=== PATIENT | female | born 2000 | race Caucasian/White ===

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

== ENCOUNTER 2021-11-20 19:26 | Emergency (ER) | payer MEDICAID ==
[2021-11-20] MEDS ORDERED: Compazine 10 MG/2 ML IV ONE (19:40)
[2021-11-20] MEDS ORDERED: Hydromorphone 1 mg/ml Injection IV ONE (19:40)
[2021-11-20] MEDS ORDERED: Sodium Chloride 0.9% 1000 ML 1,000 ML IV STA (19:40)
--- NOTE | 2021-11-20 19:40 | ERPHSYRPT ---
- History of Present Illness Time Seen by Provider: 11/20/21 19:35 Source: patient, EMS Exam Limitations: no limitations Physician History: This is a 21-year-old white female who is had no prior abdominal surgeries and presents with right lower quadrant abdominal pain with associated vomiting that began yesterday and worsened today. Patient was already seen at the [facility] emergency department earlier today. Per patient report, the CAT scan was done and there was no evidence of any issues. However, patient's pain worsened and she contacted EMS who transported the patient to our facility. EMS reports that patient was hypotensive and in pain upon their arrival with a systolic blood pressure that was palpable in the 60s. Patient was given intrave nous fluids and upon arrival to our emergency department the patient systolic blood pressures were in the 120s. Patient's heart rate is in the 70s. Patient denies chest pain. She denies shortness of breath. Patient does have a history of hypothyroidism, asthma and pituitary gland issues and is taking hydrocortisone. Patient states she is taking her medication as prescribed. Patient's last menstrual period was 1 week ago. Patient's test, per patient report, was negative this morning at the [facility] emergency department. Timing/Duration: yesterday, worse Severity: moderate Associated Symptoms: nausea, vomiting, abdominal pain (Right lower quadrant), weakness Allergies/Adverse Reactions: ondansetron [From Zofran] Allergy (Verified 12/27/17 18:44) ondansetron HCl [From Zofran] Allergy (Verified 07/12/15 18:46) Home Medications: Hydrocortisone 5 mg PO HS 10/12/13 [History] Levothyroxine Sodium [Synthroid] 75 mcg PO DAILY 10/12/13 [History] Somatropin [Genotropin] 1.8 mg SQ HS 10/12/13 [History] Hydrocortisone 7.5 mg PO DAILY 04/22/16 [History] Hydrocortisone 7.5 mg PO UD 12/27/17 [History] Levothyroxine Sodium 137 mcg PO DAILY 12/27/17 [History] Hx Tetanus, Diphtheria Vaccination/Date Given: Yes Hx Influenza Vaccination/Date Given: No Hx Pneumococcal Vaccination/Date Given: No Travel Risk - International Travel Have you traveled outside of the country in past 3 weeks: No - Coronavirus Screening Are you exhibiting any of the following symptoms?: No Close contact with a COVID-19 positive Pt in past 14-21 Days: No - Review of Systems Constitutional: No Symptoms Eyes: No Symptoms Ears, Nose, & Throat: No Symptoms Respiratory: No Symptoms Cardiac: No Symptoms Abdominal/Gastrointestinal: Abdominal Pain, Nausea, Vomiting, No Diarrhea, No Constipation Genitourinary Symptoms: No Symptoms Musculoskeletal: No Symptoms Skin: No Symptoms Neurological: No Symptoms Psychological: No Symptoms Endocrine: No Symptoms Hematologic/Lymphatic: No Symptoms Immunological/Allergic: No Symptoms All Other Systems: Reviewed and Negative - Past Medical History Pertinent Past Medical History: Yes Neurological History: No Pertinent History ENT History: No Pertinent History Cardiac History: No Pertinent History Respiratory History: Asthma Endocrine Medical History: Hypothyroidism Musculoskeletal History: No Pertinent History GI Medical History: No Pertinent History, Other History: No Pertinent History, Other Psycho-Social History: No Pertinent History Female Reproductive Disorders: Abnormal Uterine Bleeding Other Medical History: pit gland - Past Surgical History Past Surgical History: Yes Other Surgical History: egd--2014 (elevated bili, pain)-- no diagnosis - Social History Smoking Status: Never smoker Exposure to second hand smoke: No Alcohol Use: None Drug Use: none Patient Lives Alone: No Significant Family History: no pertinent family hx - Nursing Vital Signs Nursing Vital Signs: Initial Vital Signs Temperature 97.7 F 11/20/21 19:29 Pulse Rate 73 11/20/21 19:29 Respiratory Rate 14 11/20/21 19:29 Blood Pressure 121/73 11/20/21 19:29 O2 Sat by Pulse Oximetry 100 11/20/21 19:29 Pain Scale Pain Intensity 3 - Physical Exam General Appearance: mild distress, alert, anxiety Eye Exam: PERRL/EOMI, eyes nml inspection Ears, Nose, Throat Exam: normal ENT inspection, moist mucous membranes Neck Exam: normal inspection, non-tender, supple, full range of motion Respiratory Exam: normal breath sounds, lungs clear, airway intact, No chest tenderness, No respiratory distress Cardiovascular Exam: regular rate/rhythm, normal heart sounds, normal peripheral pulses Gastrointestinal/Abdomen Exam: tenderness (Underlies but patient states most tender right lower quadrant), distention, guarding, rebound, organomegaly Rectal Exam: not done Back Exam: normal inspection, normal range of motion, No CVA tenderness, No vertebral tenderness Extremity Exam: normal inspection, normal range of motion, pelvis stable Neurologic Exam: alert, oriented x 3, cooperative, bullet slugs inspector II-XII nml as tested, normal mood/affect, sensation nml Skin Exam: normal color, warm, dry Lymphatic Exam: No adenopathy SpO2 Interpretation: normal - Course Nursing assessment & vital signs reviewed: Yes EKG Interpreted by Me: RATE (79), Sinus Rhythm, NORMAL AXIS, NORMAL INTERVALS, NORMAL QRS, NORMAL ST-T, Other (Nonspecific repolarization. No acute ischemic changes. No comparison EKG available.) Ordered Tests: Active Orders 24 hr Category Date Time Status IV Insertion STAT Care 11/20/21 19:40 Active ABDOMEN AND PELVIS W/0 CONTRAS [CT] Stat Exams 11/20/21 19:41 Taken AMYLASE Stat Lab 11/20/21 20:00 Completed BLOOD CULTURE Stat Lab 11/20/21 20:00 Received CBC W DIFF Stat Lab 11/20/21 20:00 Completed CMP Stat Lab 11/20/21 20:00 Completed HCG,QUALITATIVE URINE Stat Lab 11/20/21 21:30 Ordered LIPASE Stat Lab 11/20/21 20:00 Completed Lactic Acid Stat Lab 11/20/21 20:10 Completed T4 (Thyroxine) Stat Lab 11/20/21 20:00 Completed TSH [TSH, 3RD Generation] Stat Lab 11/20/21 20:00 Completed UA W/RFX UR CULTURE Stat Lab 11/20/21 21:30 Ordered Medication Summary Discontinued Medications Generic Name Dose Route Start Last Admin Trade Name Freq PRN Reason Stop Dose Admin Hydromorphone HCl 0.5 mg 11/20/21 19:40 11/20/21 19:53 Hydromorphone 1 Mg/1ml Inj 1 Mg/Ml Syringe IV 11/20/21 19:41 0.5 mg STAT ONE Administration Hydromorphone HCl Confirm 11/20/21 19:51 Hydromorphone 1 Mg/1ml Inj 1 Mg/Ml Syringe Administered 11/20/21 19:52 Dose 1 mg .ROUTE .STK-MED ONE Sodium Chloride 1,000 mls @ 999 mls/hr 11/20/21 19:40 11/20/21 21:08 Sodium Chloride 0.9% 1000 Ml IV 11/20/21 20:40 Infused .Q1H1M STA Infusion Sodium Chloride Confirm 11/20/21 19:51 Sodium Chloride 0.9% 1000 Ml Administered 11/20/21 19:52 Dose 1,000 mls @ ud .ROUTE .STK-MED ONE Prochlorperazine Edisylate 5 mg 11/20/21 19:40 11/20/21 19:53 Prochlorperazine Edisylate 10 Mg/2 Ml Vial IV 11/20/21 19:41 5 mg STAT ONE Administration Prochlorperazine Edisylate Confirm 11/20/21 19:51 Prochlorperazine Edisylate 10 Mg/2 Ml Vial Administered 11/20/21 19:52 Dose 10 mg .ROUTE .K-MED ONE Lab/Rad Data: Laboratory Result Diagrams 11/20/21 20:00 11/20/21 20:00 Laboratory Results 11/20/21 11/20/21 11/20/21 Range/Units 20:10 20:00 20:00 WBC (4.0-10.5) K/mm3 RBC (4.1-5.4) M/mm3 Hgb (12.0-16.0) gm/dl Hct (35-47) % MCV (78-100) fl MCH (26-32) pg MCHC (32-36) g/dl RDW (11.5-14.0) % Plt Count (150-450) K/mm3 MPV (7.5-11.0) fl Gran % (36.0-66.0) % Eos # (Auto) (0-0.5) Absolute Lymphs (auto) (1.0-4.6) Absolute Monos (auto) (0.0-1.3) Lymphocytes % (24.0-44.0) % Monocytes % (0.0-12.0) % Eosinophils % (0.00-5.0) % Basophils % (0.0-0.4) % Absolute Granulocytes (1.4-6.9) Basophils # (0-0.4) Sodium (137-145) mmol/L Potassium (3.5-5.1) mmol/L Chloride (98-107) mmol/L Carbon Dioxide (22-30) mmol/L Anion Gap (5-15) MEQ/L BUN (7-17) mg/dL Creatinine (0.52-1.04) mg/dL Estimated GFR ML/MIN Glucose (74-106) mg/dL Lactic Acid 1.0 (0.4-2.0) Calcium (8.4-10.2) mg/dL Total Bilirubin (0.2-1.3) mg/dL AST (14-36) U/L ALT (0-35) U/L Alkaline Phosphatase (38-126) U/L Serum Total Protein (6.3-8.2) g/dL Albumin (3.5-5.0) g/dL Amylase (30-110) U/L Lipase (23-300) U/L Thyroxine (T4) 5.91 (5.53-10.96) ug/dL TSH 3rd Generation 6.740 H (0.47-4.68) mIU/L 11/20/21 11/20/21 Range/Units 20:00 20:00 WBC 9.8 (4.0-10.5) K/mm3 RBC 4.30 (4.1-5.4) M/mm3 Hgb 13.6 (12.0-16.0) gm/dl Hct 38.1 (35-47) % MCV 88.6 (78-100) fl MCH 31.6 (26-32) pg MCHC 35.7 (32-36) g/dl RDW 12.2 (11.5-14.0) % Plt Count 154 (150-450) K/mm3 MPV 11.4 H (7.5-11.0) fl Gran % 73.2 H (36.0-66.0) % Eos # (Auto) 0.22 (0-0.5) Absolute Lymphs (auto) 1.68 (1.0-4.6) Absolute Monos (auto) 0.71 (0.0-1.3) Lymphocytes % 17.1 L (24.0-44.0) % Monocytes % 7.2 (0.0-12.0) % Eosinophils % 2.2 (0.00-5.0) % Basophils % 0.3 (0.0-0.4) % Absolute Granulocytes 7.17 H (1.4-6.9) Basophils # 0.03 (0-0.4) Sodium 138 (137-145) mmol/L Potassium 3.2 L (3.5-5.1) mmol/L Chloride 108 H (98-107) mmol/L Carbon Dioxide 19 L (22-30) mmol/L Anion Gap 14.3 (5-15) MEQ/L BUN 8 (7-17) mg/dL Creatinine 0.55 (0.52-1.04) mg/dL Estimated GFR > 60.0 ML/MIN Glucose 94 (74-106) mg/dL Lactic Acid (0.4-2.0) Calcium 8.5 (8.4-10.2) mg/dL Total Bilirubin 2.20 H (0.2-1.3) mg/dL AST 113 H (14-36) U/L ALT 162 H (0-35) U/L Alkaline Phosphatase 116 (38-126) U/L Serum Total Protein 6.7 (6.3-8.2) g/dL Albumin 3.8 (3.5-5.0) g/dL Amylase 45 (30-110) U/L Lipase 84 (23-300) U/L Thyroxine (T4) (5.53-10.96) ug/dL TSH 3rd Generation (0.47-4.68) mIU/L - Progress Progress: improved, pain not gone completely Progress Note: 11/20/21 21:40 CAT scan of the abdomen pelvis without contrast shows no obvious appendicitis. There is right lower quadrant mesenteric adenitis present. Counseled pt/family regarding: lab results, diagnosis, need for follow-up, rad results - Departure Departure Disposition: Home Clinical Impression: Mesenteric adenitis Condition: Stable Critical Care Time: No Referrals: GILBERTO FLYNN [Primary Care Provider] - Follow up/PCP as directed Additional Instructions: Drink plenty of clear liquids. Do not advance your diet until you are taking clear liquids in well. Follow-up with your primary care physician for further management or persistent symptoms. Return to the emergency department if symptoms worsen. Prescriptions: Prochlorperazine Maleate 5 mg* [Compazine 5 MG] 5 mg PO Q8H PRN PRN #10 tablet PRN Reason: Nausea/Vomiting
[2021-11-20] MEDS ORDERED: Sodium Chloride 0.9% 1000 ML 1,000 ML ONE (19:51)
[2021-11-20] MEDS ORDERED: Compazine 10 MG/2 ML ONE (19:51)
[2021-11-20] MEDS ORDERED: Hydromorphone 1 mg/ml Injection ONE (19:51)
[2021-11-20 20:19] LABS: Absolute Neutrophil Ct (ANC) 7.17 (1.4-6.9); Basophil (Absolute #) 0.03 (0-0.4); Eosinophil % 2.2 % (0.00-5.0); Eosinophil (Absolute #) 0.22 (0-0.5); Hematocrit 38.1 % (35-47); Hemoglobin 13.6 gm/dl (12.0-16.0); Lymphocyte (Absolute #) 1.68 (1.0-4.6); Lymphocytes % 17.1 % (24.0-44.0); Mean Cell Volume 88.6 fl (78-100); Mean Corpuscular Hemoglobin 31.6 pg (26-32); Mean Corpuscular Hgb Concent. 35.7 g/dl (32-36); Mean Platelet Volume 11.4 fl (7.5-11.0); Monocyte (Absolute #) 0.71 (0.0-1.3); Monocytes % 7.2 % (0.0-12.0); Neutrophil % 73.2 % (36.0-66.0); Platelet Count 154 K/mm3 (150-450); Red Cell Distribution Width 12.2 % (11.5-14.0); White Blood Count 9.8 K/mm3 (4.0-10.5)
[2021-11-20 20:31] LABS: ALBUMIN 3.8 g/dL (3.5-5.0); ALKALINE PHOSPHATASE 116 U/L (38-126); AMYLASE 45 U/L (30-110); ANION GAP 14.3 MEQ/L (5-15); BLOOD UREA NITROGEN 8 mg/dL (7-17); CHLORIDE 108 mmol/L (98-107); Calcium 8.5 mg/dL (8.4-10.2); Carbon Dioxide 19 mmol/L (22-30); Creatinine 1 0.55 mg/dL (0.52-1.04); EST GLOMERULAR FILTRATION RATE > 60.0 ML/MIN; Glucose 94 mg/dL (74-106); LIPASE 84 U/L (23-300); Potassium 3.2 mmol/L (3.5-5.1); SGOT/AST 113 U/L (14-36); SGPT/ALT 162 U/L (0-35); SODIUM 138 mmol/L (137-145); Total Protein 6.7 g/dL (6.3-8.2)
[2021-11-20] MEDS ORDERED: Klor Con 10 MEQ PO ONE ×2 (21:43→21:48)
[2021-11-20 21:49] LABS: Appearance CLEAR (CLEAR); Bacteria MODERATE /HPF (NEGATIVE); Bilirubin NEGATIVE (NEGATIVE); Blood NEGATIVE Ery/ul (0-5); Glucose NEGATIVE (NEGATIVE); Ketones NEGATIVE (NEGATIVE); Leukocyte Esterase TRACE (NEGATIVE); Mucus SLIGHT /HPF (NEGATIVE); Nitrite POSITIVE (NEGATIVE); Protein,Urine Dip NEGATIVE (Negative); Specific Gravity 1.024 (1.005-1.025); Urobilinogen 2 mg/dL (0-1)
[2021-11-20 21:58] VITALS: BP 105/74; PULSE 81; O2SAT 99
--- NOTE | 2021-11-21 08:53 | XRAY ---
Indication: Right lower quadrant pain. Status post CT abdomen/pelvis with contrast exam earlier today at [facility] Multiple contiguous axial images obtained through the abdomen and pelvis without contrast. Comparison: None Lung bases demonstrates 8 mm right lower lobe noncalcified nodule probably granulomatous in this demographic. No infiltrate or effusion. Heart not enlarged. Noncontrasted stomach and bowel loops appear nonobstructed. Appendix not visualized. Mild/moderate diffuse fecal debris in the ascending, descending, and sigmoid colon. No free fluid/air. Fatty hepatomegaly measuring 22.8 cm. Residual contrast in the system precludes evaluation for calculous. No hydronephrosis or hydroureter. Remaining liver, gallbladder, pancreas, spleen, adrenal glands, kidneys, ureters, bladder, uterus, and aorta are unremarkable. Osseous structures intact with minimal L3-L4 degenerative changes with small inferior L3 Schmorl node. No ventral or inguinal hernias. Impression: 1. Residual contrast in the system from same day CT abdomen/pelvis with contrast exam. 2. Fecal stasis, fatty hepatomegaly, and chronic bony findings. 3. Right lower lobe 8 mm noncalcified nodule probably granulomatous. Comment: Preliminary interpretation made by [facility]. No critical discrepancy.
== END 2021-11-20 21:58 | disposition home or self-care (01) ==
LOC: ED 19:26
DX: I88.0 Nonspecific mesenteric lymphadenitis (principal); E87.6 Hypokalemia; R11.2 Nausea with vomiting, unspecified; R53.1 Weakness; Z79.52 Long term (current) use of systemic steroids; Z79.899 Other long term (current) drug therapy
CPT/HCPCS: 36000; 36415; 74176; 80053; 81001; 82150; 83605; 83690; 84436; 84443; 84703; 85025; 87040; 87077; 87086; 87186; 96360; 96374; 96375; 99284; J1170; A9270-GY

== ENCOUNTER 2023-08-16 09:35 | Emergency (ER) | payer MEDICAID ==
[2023-08-16] MEDS ORDERED: BABY ASPIRIN 81 MG CHEW PO ONE (09:47)
[2023-08-16 09:48] VITALS: TEMP 97.7
[2023-08-16] MEDS ORDERED: BABY ASPIRIN 81 MG CHEW ONE (10:08)
--- NOTE | 2023-08-16 10:26 | ERPHSYRPT ---
- History of Present Illness Time Seen by Provider: 08/16/23 09:36 Historian: patient Exam Limitations: no limitations Patient Subjective Stated Complaint: "I've had nosebleeds and chest pains since yesterday. My nose has bleed 4 or 5 times." Triage Nursing Assessment: Pt presents to ER with complaints of midsternal chest pains since yesterday afternoon. Pt states also has had 4 or 5 nosebleeds since yesterday. Nose is not currently bleeding. Pt is alert and oriented x 3. Skin is pale, warm, and dry. Respirations are easy at triage. Denies cough. Denies nausea/vomiting/diarrhea. Pt pain is rated 6/10 scale. Denies any radiation of pain. Pt describes pain as constant pressure as if "someone was sitting on my chest". 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 Denies any cough or congestion. Does report having epistaxis 3-4 times yesterday. Not taking any blood thinners. Denies any headache. No fever or chills reported. Currently rated 6/10 intensity chest pain but does not want any pain medications. Pain is nonradiating. Reports having similar symptoms in the past as well, has not seen a trimming assembler. Aspirin Treatment Today: unknown Allergies/Adverse Reactions: ondansetron [From Zofran] Allergy (Verified 08/16/23 09:48) ondansetron HCl [From Zofran] Allergy (Verified 08/16/23 09:48) Home Medications: Levothyroxine Sodium [Synthroid] 75 mcg PO DAILY 10/12/13 [History] Hydrocortisone 7.5 mg PO UD 12/27/17 [History] Hx Tetanus, Diphtheria Vaccination/Date Given: Yes Hx Influenza Vaccination/Date Given: No Hx Pneumococcal Vaccination/Date Given: No Immunizations Up to Date: Yes Travel Risk - International Travel Have you traveled outside of the country in past 3 weeks: No - Coronavirus Screening Are you exhibiting any of the following symptoms?: No Close contact with a COVID-19 positive Pt in past 14-21 Days: No - Vaccine Status Have you recieved a Covid-19 vaccination: Yes 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[employer] - Vaccination Dates Date of 2cond Vaccination (if applicable): 06/21/22 - Review of Systems Constitutional: No Symptoms Eyes: No Symptoms Ears, Nose, & Throat: Nose Congestion, Epistaxis Respiratory: No Symptoms Cardiac: Chest Pain Abdominal/Gastrointestinal: No Symptoms Genitourinary Symptoms: No Symptoms Musculoskeletal: No Symptoms Skin: No Symptoms Neurological: No Symptoms Hematologic/Lymphatic: No Symptoms Immunological/Allergic: No Symptoms - Past Medical History Pertinent Past Medical History: Yes Neurological History: No Pertinent History ENT History: No Pertinent History Cardiac History: No Pertinent History Respiratory History: Asthma Endocrine Medical History: Hypothyroidism Musculoskeletal History: No Pertinent History GI Medical History: No Pertinent History, Other History: No Pertinent History, Other Psycho-Social History: Anxiety Female Reproductive Disorders: Abnormal Uterine Bleeding 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 - Past Surgical History Past Surgical History: Yes Neuro Surgical History: No Pertinent History Cardiac: No Pertinent History Respiratory: No Pertinent History Gastrointestinal: Cholecystectomy Genitourinary: No Pertinent History Musculoskeletal: No Pertinent History Female Surgical History: No Pertinent History Other Surgical History: egd--2014 (elevated bili, pain)-- no diagnosis - Social History Smoking Status: Never smoker Exposure to second hand smoke: No Alcohol Use: None Drug Use: none Patient Lives Alone: No Significant Family History: no pertinent family hx - Female History Hx Last Menstrual Period: "doesn't have them" Hx Now: (unkn) - Nursing Vital Signs Nursing Vital Signs: Initial Vital Signs Pulse Rate 78 08/16/23 09:32 Respiratory Rate 21 08/16/23 09:32 Blood Pressure 118/75 08/16/23 09:32 Pain Scale Pain Intensity 0 - Physical Exam General Appearance: no apparent distress, alert Eye Exam: PERRL/EOMI Ears, Nose, Throat Exam: TMs normal, pharynx normal, other (No obvious lesions i n the nose, no active bleeding.) Neck Exam: normal inspection Cardiovascular Exam: regular rate/rhythm, normal heart sounds Gastrointestinal/Abdomen Exam: soft, normal bowel sounds, No tenderness Extremity Exam: normal inspection, normal range of motion Neurologic Exam: alert, oriented x 3, cooperative Skin Exam: normal color SpO2 Interpretation: normal SpO2: 99 O2 Delivery: Room Air - Course EKG Interpreted by Me: RATE (73), Sinus Rhythm, NORMAL AXIS, Non-specific ST Changes, Other (T wave inversion in inferolateral leads) Ordered Tests: Active Orders 24 hr Category Date Time Status Nurse Prn STAT Care 08/16/23 09:48 Completed EKG-ER Only STAT Care 08/16/23 09:47 Completed IV Insertion STAT Care 08/16/23 09:47 Completed CHEST 1 VIEW (PORTABLE) Stat Exams 08/16/23 09:47 Completed CBC W DIFF Stat Lab 08/16/23 12:09 Completed CMP Stat Lab 08/16/23 12:07 Completed D-DIMER QUANTITATIVE Stat Lab 08/16/23 12:07 Completed HCG QUALITATIVE, URINE Stat Lab 08/16/23 Completed NT PRO BNPII Stat Lab 08/16/23 12:07 Completed TROPONIN Q4H Lab 08/16/23 12:07 Completed TSH, 3RD Generation Stat Lab 08/16/23 12:07 Completed Medication Summary Discontinued Medications Generic Name Dose Route Start Last Admin Trade Name Freq PRN Reason Stop Dose Admin Aspirin 324 mg 08/16/23 09:47 08/16/23 10:11 Aspirin 81 Mg Tab.Chew PO 08/16/23 09:48 324 mg STAT ONE Administration Aspirin Confirm 08/16/23 10:08 Aspirin 81 Mg Tab.Chew Administered 08/16/23 10:09 Dose 324 mg .ROUTE .STK-MED ONE Sodium Chloride 1,000 mls @ 999 mls/hr 08/16/23 10:42 08/16/23 11:46 Sodium Chloride 0.9% 1000 Ml IV 08/16/23 11:42 Infused .Q1H1M STA Infusion Sodium Chloride Confirm 08/16/23 10:43 Sodium Chloride 0.9% 1000 Ml Administered 08/16/23 10:44 Dose 1,000 mls @ ud .ROUTE .STK-MED ONE Lab/Rad Data: Laboratory Result Diagrams 08/16/23 12:09 08/16/23 12:07 Laboratory Results 08/16/23 08/16/23 08/16/23 Range/Units Unknown 12: 12:07 WBC 8.5 (4.0-10.5) x10^3/uL RBC 4.34 (4.1-5.4) x10^6/uL Hgb 13.8 (12.0-16.0) g/dL Hct 39.2 (35-47) % MCV 90.3 (78-100) fL MCH 31.8 (26-32) pg MCHC 35.2 (32-36) g/dL RDW 11.6 (11.5-14.0) % Plt Count 163 (150-450) x10^3/uL MPV 11.1 H (7.5-11.0) fL Gran % 59.9 (36.0-66.0) % Immature Gran % (Auto) 0.6 H (0.00-0.4) % Nucleat RBC Rel Count 0.0 (0.00-0.1) % Eos # (Auto) 0.51 H (0-0.5) x10^3/uL Immature Gran # (Auto) 0.05 H (0.00-0.03) x10^3u/L Absolute Lymphs (auto) 2.22 (1.0-4.6) x10^3/uL Absolute Monos (auto) 0.54 (0.0-1.3) x10^3/uL Absolute Nucleated RBC 0.00 (0.00-0.01) x10^3u/L Lymphocytes % 26.3 (24.0-44.0) % Monocytes % 6.4 (0.0-12.0) % Eosinophils % 6.0 H (0.00-5.0) % Basophils % 0.8 (0.0-0.4) % Absolute Granulocytes 5.06 (1.4-6.9) x10^3/uL Basophils # 0.07 (0-0.4) x10^3/uL D-Dimer (0.0-0.50) mg/L Sodium (137-145) mmol/L Potassium (3.5-5.1) mmol/L Chloride (98-107) mmol/L Carbon Dioxide (22-30) mmol/L Anion Gap (5-15) MEQ/L BUN (7-17) mg/dL Creatinine (0.52-1.04) mg/dL Estimated GFR ML/MIN Glucose (74-106) mg/dL Calcium (8.4-10.2) mg/dL Total Bilirubin (0.2-1.3) mg/dL AST (14-36) U/L ALT (0-35) U/L Alkaline Phosphatase (38-126) U/L Troponin I < 0.012 (0.000-0.034) ng/mL NT-Pro-B Natriuret Pep (<300) pg/mL Serum Total Protein (6.3-8.2) g/dL Albumin (3.5-5.0) g/dL TSH 3rd Generation (0.47-4.68) mIU/L Urine HCG, Qual NEGATIVE (NEGATIVE) 08/16/23 08/16/23 Range/Units 12:07 12:07 WBC (4.0-10.5) x10^3/uL RBC (4.1-5.4) x10^6/uL Hgb (12.0-16.0) g/dL Hct (35-47) % MCV (78-100) fL MCH (26-32) pg MCHC (32-36) g/dL RDW (11.5-14.0) % Plt Count (150-450) x10^3/uL MPV (7.5-11.0) fL Gran % (36.0-66.0) % Immature Gran % (Auto) (0.00-0.4) % Nucleat RBC Rel Count (0.00-0.1) % Eos # (Auto) (0-0.5) x10^3/uL Immature Gran # (Auto) (0.00-0.03) x10^3u/L Absolute Lymphs (auto) (1.0-4.6) x10^3/uL Absolute Monos (auto) (0.0-1.3) x10^3/uL Absolute Nucleated RBC (0.00-0.01) x10^3u/L Lymphocytes % (24.0-44.0) % Monocytes % (0.0-12.0) % Eosinophils % (0.00-5.0) % Basophils % (0.0-0.4) % Absolute Granulocytes (1.4-6.9) x10^3/uL Basophils # (0-0.4) x10^3/uL D-Dimer 0.32 (0.0-0.50) mg/L Sodium 139 (137-145) mmol/L Potassium 3.7 (3.5-5.1) mmol/L Chloride 105 (98-107) mmol/L Carbon Dioxide 25 (22-30) mmol/L Anion Gap 12.4 (5-15) MEQ/L BUN 9 (7-17) mg/dL Creatinine 0.50 L (0.52-1.04) mg/dL Estimated GFR 135.9 ML/MIN Glucose 94 (74-106) mg/dL Calcium 8.9 (8.4-10.2) mg/dL Total Bilirubin 3.30 H (0.2-1.3) mg/dL AST 105 H (14-36) U/L ALT 95 H (0-35) U/L Alkaline Phosphatase 127 H (38-126) U/L Troponin I (0.000-0.034) ng/mL NT-Pro-B Natriuret Pep 34.5 (<300) pg/mL Serum Total Protein 7.5 (6.3-8.2) g/dL Albumin 4.1 (3.5-5.0) g/dL TSH 3rd Generation 5.750 H (0.47-4.68) mIU/L Urine HCG, Qual (NEGATIVE) - Progress Progress: improved Air Movement: good Progress Note: 08/16/23 13:57 23 years old female with 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 Denies any cough or congestion. Does report having epistaxis 3-4 times yesterday. Not taking any blood thinners. Denies any headache. No fever or chills reported. Currently rated 6/10 intensity chest pain but does not want any pain medicat ions. Pain is nonradiating. Reports having similar symptoms in the past as well, has not seen a trimming assembler. EKG showed some T wave inversion and mild ST depression in inferolateral leads and some on anterior leads as well. I have reviewed previous EKG and had similar changes and do not think anything acute. Troponins are negative. She is given aspirin and feeling better. She is low heart score and pain has been going on since yesterday, do not think she needs a second troponin. Workup showed normal white count, fairly unremarkable chemistries except for elevated transaminases and total bili of 3.3. Patient has chronic elevation in her liver enzymes and bilirubin although it was 2.2 last year and it increased to 3.3. Patient denies any abdominal pain but does have some jaundice look. She denies any harry colored stool. She has history of cholecystectomy done. D-dimer is negative. Patient is chest pain-free on reevaluation. She is given gentle hydration as well. TSH is mildly elevated, patient is on levothyroxine which she is advised to continue. She is advised to follow-up outpatient with her primary care, endocrinology and also outpatient GI follow-up with who she has been following up in the past at [place]. I do not think she needs to be admitted for this issue and also I have discussed with Dr. Burton [facility] on- call who agrees that patient needs outpatient follow-up. Discussed signs symptoms of worsening needing return to ER which she seems understanding. 08/16/23 14:00 Blood Culture(s) Obtained: No Antibiotics given: No Counseled pt/family regarding: lab results, diagnosis, need for follow-up, rad results Medical Desision Making - Independent Historian Additional History obtained from: Mother - Diagnostic Testing Diagnostic test were ordered, analyzed, and reviewed by me: Yes Radiological Interpretation: Reviewed by me - Departure Departure Disposition: Home Clinical Impression: Elevated liver function tests, Panhypopituitarism, Atypical chest pain Condition: Stable Critical Care Time: No Referrals: GILBERTO FLYNN [Primary Care Provider] - Follow up with PCP 1 day TYRELL LYMAN [CONSULTING PHYSICIAN] - Follow up/PCP as directed (1-2 days for reevaluation) Instructions: Chest Pain (DC) Additional Instructions: Follow-up with primary care for reevaluation and recheck of liver enzymes. Also get an appointment with your GI for further evaluation of elevated liver enzymes. Call cardiology for reevaluation for chest pain. Return to ER for any worsening.
[2023-08-16 10:31] LABS: HCG URINE TEST NEGATIVE (NEGATIVE)
[2023-08-16] MEDS ORDERED: Sodium Chloride 0.9% 1000 ML 1,000 ML IV STA (10:42)
[2023-08-16] MEDS ORDERED: Sodium Chloride 0.9% 1000 ML 1,000 ML ONE (10:43)
--- NOTE | 2023-08-16 11:25 | XRAY ---
Indication: Chest pain. Comparison: None Portable chest demonstrates normal heart, lungs, and bony thorax.
[2023-08-16 12:15] LABS: Absolute Neutrophil Ct (ANC) 5.06 x10^3/uL (1.4-6.9); BASOPHIL % 0.8 % (0.0-0.4); Basophil (Absolute #) 0.07 x10^3/uL (0-0.4); Eosinophil (Absolute #) 0.51 x10^3/uL (0-0.5); Hematocrit 39.2 % (35-47); Hemoglobin 13.8 g/dL (12.0-16.0); IMMATURE GRAN # 0.05 x10^3u/L (0.00-0.03); IMMATURE GRAN % 0.6 % (0.00-0.4); Lymphocyte (Absolute #) 2.22 x10^3/uL (1.0-4.6); Lymphocytes % 26.3 % (24.0-44.0); Mean Cell Volume 90.3 fL (78-100); Mean Corpuscular Hemoglobin 31.8 pg (26-32); Mean Corpuscular Hgb Concent. 35.2 g/dL (32-36); Mean Platelet Volume 11.1 fL (7.5-11.0); Monocyte (Absolute #) 0.54 x10^3/uL (0.0-1.3); Monocytes % 6.4 % (0.0-12.0); Neutrophil % 59.9 % (36.0-66.0); Platelet Count 163 x10^3/uL (150-450); Red Blood Count 4.34 x10^6/uL (4.1-5.4); Red Cell Distribution Width 11.6 % (11.5-14.0); White Blood Count 8.5 x10^3/uL (4.0-10.5)
[2023-08-16 13:00] LABS: ALBUMIN 4.1 g/dL (3.5-5.0); ANION GAP 12.4 MEQ/L (5-15); BILIRUBIN,TOTAL 3.3 mg/dL (0.2-1.3); Calcium 8.9 mg/dL (8.4-10.2); Creatinine 1 0.5 mg/dL (0.52-1.04); EST GLOMERULAR FILTRATION RATE 135.9 ML/MIN; NT PRO BNPII 34.5 pg/mL (<300); Potassium 3.7 mmol/L (3.5-5.1); TSH, 3RD Generation 5.75 mIU/L (0.47-4.68); Total Protein 7.5 g/dL (6.3-8.2)
[2023-08-16 14:01] VITALS: BP 108/64; O2SAT 99
[2023-08-16 14:03] VITALS: PULSE 70; RESP 19
== END 2023-08-16 14:17 | disposition home or self-care (01) ==
LOC: ED 09:35
DX: R07.89 Other chest pain (principal); R94.5 Abnormal results of liver function studies; E23.0 Hypopituitarism; R06.02 Shortness of breath; Z79.52 Long term (current) use of systemic steroids; Z79.899 Other long term (current) drug therapy
CPT/HCPCS: 36000; 36415; 71045; 80053; 81025; 83880; 84443; 84484; 85025; 85379; 93005; 93041; 99284; A9270-GY

== ENCOUNTER 2024-01-15 21:13 | Observation (INO) | payer MEDICAID ==
[2024-01-15 22:32] LABS: Absolute Neutrophil Ct (ANC) 9.65 x10^3/uL (1.4-6.9); BASOPHIL % 0.9 % (0.0-0.4); Basophil (Absolute #) 0.12 x10^3/uL (0-0.4); Eosinophil % 0.9 % (0.00-5.0); Eosinophil (Absolute #) 0.13 x10^3/uL (0-0.5); Hematocrit 39.9 % (35-47); Hemoglobin 14.2 g/dL (12.0-16.0); IMMATURE GRAN % 0.7 % (0.00-0.4); Lymphocyte (Absolute #) 2.81 x10^3/uL (1.0-4.6); Lymphocytes % 19.9 % (24.0-44.0); Mean Cell Volume 90.3 fL (78-100); Mean Corpuscular Hemoglobin 32.1 pg (26-32); Mean Corpuscular Hgb Concent. 35.6 g/dL (32-36); Mean Platelet Volume 11.3 fL (7.5-11.0); Monocytes % 9.2 % (0.0-12.0); Neutrophil % 68.4 % (36.0-66.0); Platelet Count 215 x10^3/uL (150-450); Red Blood Count 4.42 x10^6/uL (4.1-5.4); Red Cell Distribution Width 11.9 % (11.5-14.0); White Blood Count 14.1 x10^3/uL (4.0-10.5)
[2024-01-15 22:47] LABS: ALBUMIN 4.7 g/dL (3.5-5.0); ANION GAP 18.7 MEQ/L (5-15); Calcium 9.7 mg/dL (8.4-10.2); Creatinine 1 0.96 mg/dL (0.52-1.04); EST GLOMERULAR FILTRATION RATE 85.3 ML/MIN; Total Protein 8.5 g/dL (6.3-8.2)
[2024-01-15 22:50] LABS: Appearance Cloudy (Clear); Bacteria Many /HPF (None Seen); Bilirubin Negative (Negative); Blood Negative (Negative); Epithelial Cells None Seen /HPF (None Seen); Glucose, Urine Negative (Negative); Ketones Negative (Negative); Leukocyte Esterase Large (Negative); Nitrite Positive (Negative); Ph 5.5 (4.6-8.0); Protein,Urine Dip 30 (Negative); RBC 21-50 /HPF (0-5); Specific Gravity 1.015 (1.005-1.030); WBC >100 /HPF (0-5)
[2024-01-15 22:51] LABS: ADD URINE CULTURE? YES (NO)
[2024-01-15] MEDS ORDERED: ROCEPHIN 1 GM / 100 ML NaCl 1 GM/100 ML IVPB IV ONE ×2 (22:54→23:07)
[2024-01-15] MEDS: ROCEPHIN 1 GM / 100 ML NaCl 1 GM/100 ML IVPB IV ONE (23:08)
--- NOTE | 2024-01-15 23:47 | XRAY ---
CLINICAL HISTORY: pain COMPARISON: Previous CT dated 11/20/2021 TECHNIQUE: CT scan of the abdomen and pelvis was performed without IV contrast. Coronal and sagittal reconstructions were also obtained. FINDINGS: Liver is grossly enlarged measuring 22.0 cm. It has normal shape with regular margins. No focal or diffuse parenchymal abnormality. No hepatic mass is identified. The portal vein, intrahepatic biliary radicals and the bile ducts are normal. Gall bladder is surgically absent. Common bile duct appears normal. Pancreas appears normal. No peripancreatic fat stranding, pancreatic pseudocyst or peripancreatic fluid collection. Spleen is enlarged measuring 16.0 cm. It shows a small calcific density. No mass lesion is noted. Both adrenal glands are unremarkable. Both kidneys are normal in size, shape and orientation. No calculi, cyst mass or hydronephrosis seen on either side. Both ureters and urinary bladder appear normal. Stomach and small bowel loops are unremarkable. Caecum and ileocecal junction appear normal. No abnormal gut wall thickening or mass lesion is appreciated. No evidence of bowel obstruction. Pelvic viscera show normal morphology. Uterus and both adnexa appear normal. Appendix is normal. No evidence of significant enlargement of the mesenteric or retroperitoneal lymph nodes. Visualized thoracic and lumbar spine show mild schmorl node formation. No lytic or sclerotic destructive lesions in visualized bones. A 7.3 mm semisolid soft tissue nodule is noted in right basal lung. No pleural or pericardial effusion seen. IMPRESSION: 1. Diffuse hepatsplenomegaly with liver measuring 22.0 cm and spleen measuring 16.0 cm. No pathologically enlarged mesenteric or pelvic side wall lymphadenopathy. Clinical work up is advised. 2. A 7.3 mm semisolid soft tissue nodule is noted in right basal lung. Interval follow up at 3-6 months is advised according to Fleischner guidelines. [facility] ER was called at [phone] at 10:36 PM NEWSPAPER MANAGER, 01/15/2024 and results were verbally communicated to ER nurse Cynthia. Electronically Signed by: Lucero Laughlin MD. (01/15/2024 23:43:12 EDT)
--- NOTE | 2024-01-16 00:37 | ERPHSYRPT ---
- History of Present Illness Time Seen by Provider: 01/15/24 21:50 Source: patient Exam Limitations: no limitations Patient Subjective Stated Complaint: pt states fever of 103.5 Triage Nursing Assessment: pt ambulated into the er; pt is axo x4; c/o fever; pt states 6/10; rt flank pain; active bowel sounds in all quads; c/o nausea; denies vomiting, diarrhea; last bm 01/14/24; skin PDW; vitals wnl Physician History: 24-year-old female presents emergency department for evaluation of right-sided flank pain. Patient voices that she was diagnosed with a urinary tract infection last week. For some uncertain reason patient discontinued her antibiotics. And then resumed them. While she was at her antibiotics for urinary tract infection symptoms were improving. After she discontinued her antibiotics symptoms recurred. Patient completed a course of antibiotics and her symptoms are still present. Patient describes fever of 102 at home. Mother at bedside reports that patient has a history of low thyroid and low cortisone levels. Patient received replacement hormone therapy for both. Patient voices no other complaints or concerns at this time. Portions of this note were created with voice recognition technology. There may be grammatical, spelling, punctuation or sound alike errors Timing/Duration: today Severity: moderate Modifying Factors: Improves With: nothing Associated Symptoms: denies symptoms Allergies/Adverse Reactions: ondansetron [From Zofran] Allergy (Verified 08/16/23 09:48) ondansetron HCl [From Zofran] Allergy (Verified 08/16/23 09:48) Home Medications: Levothyroxine Sodium [Synthroid] 175 mcg PO DAILY 10/12/13 [History] Hydrocortisone 10 mg PO BID 12/27/17 [History] Hx Tetanus, Diphtheria Vaccination/Date Given: Yes Hx Influenza Vaccination/Date Given: No Hx Pneumococcal Vaccination/Date Given: No Travel Risk - International Travel Have you traveled outside of the country in past 3 weeks: No - Emerging Infectious Disease Are you exhibiting symptoms associated with any current EIDs: No - Review of Systems Constitutional: No Symptoms, No Fever, No Chills Eyes: No Symptoms Ears, Nose, & Throat: No Symptoms Respiratory: No Symptoms, No Cough, No Dyspnea Cardiac: No Symptoms, No Chest Pain, No Edema, No Syncope Abdominal/Gastrointestinal: No Symptoms, No Abdominal Pain, No Nausea, No Vomiting, No Diarrhea Genitourinary Symptoms: No Symptoms, No Dysuria Musculoskeletal: No Symptoms, No Back Pain, No Neck Pain Skin: No Symptoms, No Rash Neurological: No Symptoms, No Dizziness, No Focal Weakness, No Sensory Changes Psychological: No Symptoms Endocrine: No Symptoms Hematologic/Lymphatic: No Symptoms Immunological/Allergic: No Symptoms All Other Systems: Reviewed and Negative - Past Medical History Pertinent Past Medical History: Yes Neurological History: No Pertinent History ENT History: No Pertinent History Cardiac History: No Pertinent History Respiratory History: Asthma Endocrine Medical History: Hypothyroidism Musculoskeletal History: No Pertinent History GI Medical History: No Pertinent History, Other History: No Pertinent History, Other Psycho-Social History: Anxiety Female Reproductive Disorders: Abnormal Uterine Bleeding 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 - Past Surgical History Past Surgical History: Yes Neuro Surgical History: No Pertinent History Cardiac: No Pertinent History Respiratory: No Pertinent History Gastrointestinal: Cholecystectomy Genitourinary: No Pertinent History Musculoskeletal: No Pertinent History Female Surgical History: No Pertinent History Other Surgical History: egd--2014 (elevated bili, pain)-- no diagnosis Significant Family History: no pertinent family hx - Female History Hx Now: No - Social History Smoking Status: Smoker, status unknown Exposure to second hand smoke: No Alcohol Use: None Drug Use: none Patient Lives Alone: No - Nursing Vital Signs Nursing Vital Signs: Initial Vital Signs Temperature 99.4 F 01/15/24 21:42 Pulse Rate 88 01/15/24 21:42 Respiratory Rate 18 01/15/24 21:42 Blood Pressure 112/65 01/15/24 21:42 O2 Sat by Pulse Oximetry 95 01/15/24 21:42 Pain Scale Pain Intensity 6 - Physical Exam General Appearance: no apparent distress, alert Eye Exam: PERRL/EOMI, eyes nml inspection Ears, Nose, Throat Exam: normal ENT inspection, TMs normal, pharynx normal, moist mucous membranes Neck Exam: normal inspection, non-tender, supple, full range of motion Respiratory Exam: normal breath sounds, lungs clear, airway intact, No respiratory distress Cardiovascular Exam: regular rate/rhythm, normal heart sounds, normal peripheral pulses Gastrointestinal/Abdomen Exam: soft, normal bowel sounds, other (Right CVA tenderness), No tenderness, No mass Back Exam: normal inspection, normal range of motion, No CVA tenderness, No vertebral tenderness Extremity Exam: normal inspection, normal range of motion, pelvis stable Neurologic Exam: alert, oriented x 3, cooperative, normal mood/affect, nml cerebellar function, nml station & gait, sensation nml, No motor deficits Skin Exam: normal color, warm, dry, No rash Lymphatic Exam: No adenopathy SpO2 Interpretation: normal SpO2: 97 O2 Delivery: Room Air - Course Nursing assessment & vital signs reviewed: Yes - CT Exams Abdomen/Pelvis CT Interpretation: Tele-radiologist Report (Diffuse hepatosplenomegaly, right lung nodule which will require interval follow-up in 3 to 6 months) Ordered Tests: Active Orders 24 hr Category Date Time Status IV Insertion STAT Care 01/15/24 22:20 Active ABDOMEN AND PELVIS W/0 CONTRAS [CT] Stat Exams 01/15/24 22:20 Completed CBC W DIFF Stat Lab 01/15/24 22:33 Completed CMP Stat Lab 01/15/24 22:33 Completed CULTURE,URINE Stat Lab 01/15/24 22:20 Received Lactic Acid Stat Lab 01/15/24 22:50 Completed UA W/RFX UR CULTURE Stat Lab 01/15/24 22:20 Completed Transfer Order Routine Transfer 01/16/24 Ordered Medication Summary Generic Name Dose Route Start Last Admin Trade Name Freq PRN Reason Stop Dose Admin Sodium Chloride 1,000 mls @ 125 mls/hr 01/16/24 01:15 01/16/24 01:40 Sodium Chloride 0.9% 1000 Ml IV 02/15/24 01:14 125 mls/hr .Q8H JEREL Administration Discontinued Medications Generic Name Dose Route Start Last Admin Trade Name Freq PRN Reason Stop Dose Admin Ceftriaxone Sodium Confirm 01/15/24 22:54 Rocephin 1 Gm / 100 Ml Nacl Administered 01/15/24 22:55 Dose 1 gm in 100 mls @ ud IV .STK-MED ONE Ceftriaxone Sodium 1 gm in 100 mls @ 200 mls/hr 01/15/24 22:56 01/15/24 23:38 Rocephin 1 Gm / 100 Ml Nacl IV 01/15/24 23:25 Infused STAT ONE Infusion Ceftriaxone Sodium Confirm 01/15/24 23:07 Rocephin 1 Gm / 100 Ml Nacl Administered 01/15/24 23:08 Dose 1 gm in 100 mls @ ud IV .STK-MED ONE Lab/Rad Data: Laboratory Result Diagrams 01/15/24 22:33 01/15/24 22:33 Laboratory Results 01/15/24 01/15/24 01/15/24 Range/Units 22:50 22:33 22:33 WBC 14.1 H (4.0-10.5) x10^3/uL RBC 4.42 (4.1-5.4) x10^6/uL Hgb 14.2 (12.0-16.0) g/dL Hct 39.9 (35-47) % MCV 90.3 (78-100) fL MCH 32.1 H (26-32) pg MCHC 35.6 (32-36) g/dL RDW 11.9 (11.5-14.0) % Plt Count 215 (150-450) x10^3/uL MPV 11.3 H (7.5-11.0) fL Gran % 68.4 H (36.0-66.0) % Immature Gran % (Auto) 0.7 H (0.00-0.4) % Nucleat RBC Rel Count 0.0 (0.00-0.1) % Eos # (Auto) 0.13 (0-0.5) x10^3/uL Immature Gran # (Auto) 0.10 H (0.00-0.03) x10^3u/L Absolute Lymphs (auto) 2.81 (1.0-4.6) x10^3/uL Absolute Monos (auto) 1.30 (0.0-1.3) x10^3/uL Absolute Nucleated RBC 0.00 (0.00-0.01) x10^3u/L Lymphocytes % 19.9 L (24.0-44.0) % Monocytes % 9.2 (0.0-12.0) % Eosinophils % 0.9 (0.00-5.0) % Basophils % 0.9 (0.0-0.4) % Absolute Granulocytes 9.65 H (1.4-6.9) x10^3/uL Basophils # 0.12 (0-0.4) x10^3/uL Sodium 136 (135-145) mmol/L Potassium 4.0 (3.5-5.1) mmol/L Chloride 100 (98-107) mmol/L Carbon Dioxide 21 L (22-30) mmol/L Anion Gap 18.7 H (5-15) MEQ/L BUN 14 (7-17) mg/dL Creatinine 0.96 (0.52-1.04) mg/dL Estimated GFR 85.3 ML/MIN Glucose 115 H (74-106) mg/dL Lactic Acid 1.2 (0.4-2.0) Calcium 9.7 (8.4-10.2) mg/dL Total Bilirubin 3.00 H (0.2-1.3) mg/dL AST 131 H (14-36) U/L ALT 77 H (0-35) U/L Alkaline Phosphatase 131 H (38-126) U/L Serum Total Protein 8.5 H (6.3-8.2) g/dL Albumin 4.7 (3.5-5.0) g/dL Urine Color (Yellow) Urine Appearance (Clear) Urine pH (4.6-8.0) Ur Specific [place] (1.005-1.030) Urine Protein (Negative) Urine Glucose (UA) (Negative) mg/dL Urine Ketones (Negative) Urine Blood (Negative) Urine Nitrite (Negative) Urine Bilirubin (Negative) Urine Urobilinogen (0.2) mg/dL Ur Leukocyte Esterase (Negative) U Hyaline Cast (Auto) (0-2) /LPF Urine Microscopic RBC (0-5) /HPF Urine Microscopic WBC (0-5) /HPF Ur Epithelial Cells (None Seen) /HPF Urine Bacteria (None Seen) /HPF Urine Culture Reflexed (NO) 01/15/24 Range/Units 22:20 WBC (4.0-10.5) x10^3/uL RBC (4.1-5.4) x10^6/uL Hgb (12.0-16.0) g/dL Hct (35-47) % MCV (78-100) fL MCH (26-32) pg MCHC (32-36) g/dL RDW (11.5-14.0) % Plt Count (150-450) x10^3/uL MPV (7.5-11.0) fL Gran % (36.0-66.0) % Immature Gran % (Auto) (0.00-0.4) % Nucleat RBC Rel Count (0.00-0.1) % Eos # (Auto) (0-0.5) x10^3/uL Immature Gran # (Auto) (0.00-0.03) x10^3u/L Absolute Lymphs (auto) (1.0-4.6) x10^3/uL Absolute Monos (auto) (0.0-1.3) x10^3/uL Absolute Nucleated RBC (0.00-0.01) x10^3u/L Lymphocytes % (24.0-44.0) % Monocytes % (0.0-12.0) % Eosinophils % (0.00-5.0) % Basophils % (0.0-0.4) % Absolute Granulocytes (1.4-6.9) x10^3/uL Basophils # (0-0.4) x10^3/uL Sodium (135-145) mmol/L Potassium (3.5-5.1) mmol/L Chloride (98-107) mmol/L Carbon Dioxide (22-30) mmol/L Anion Gap (5-15) MEQ/L BUN (7-17) mg/dL Creatinine (0.52-1.04) mg/dL Estimated GFR ML/MIN Glucose (74-106) mg/dL Lactic Acid (0.4-2.0) Calcium (8.4-10.2) mg/dL Total Bilirubin (0.2-1.3) mg/dL AST (14-36) U/L ALT (0-35) U/L Alkaline Phosphatase (38-126) U/L Serum Total Protein (6.3-8.2) g/dL Albumin (3.5-5.0) g/dL Urine Color Dark Yellow A (Yellow) Urine Appearance Cloudy A (Clear) Urine pH 5.5 (4.6-8.0) Ur Specific [place] 1.015 (1.005-1.030) Urine Protein 30 (Negative) Urine Glucose (UA) Negative (Negative) mg/dL Urine Ketones Negative (Negative) Urine Blood Negative (Negative) Urine Nitrite Positive A (Negative) Urine Bilirubin Negative (Negative) Urine Urobilinogen 1.0 A (0.2) mg/dL Ur Leukocyte Esterase Large A (Negative) U Hyaline Cast (Auto) 3-5 A (0-2) /LPF Urine Microscopic RBC 21-50 A (0-5) /HPF Urine Microscopic WBC >100 A (0-5) /HPF Ur Epithelial Cells None Seen (None Seen) /HPF Urine Bacteria Many A (None Seen) /HPF Urine Culture Reflexed YES (NO) - Progress Progress: improved Progress Note: 24-year-old female presents to our ED with right flank pain and fever at home. Physical exam reveals right CVA tenderness. Workup reveals a leukocytosis urinary tract infection/pyelonephritis. Incidental elevated total bili with a transaminitis. CT scan reveals diffuse hepatosplenomegaly with a right lung nodule. The right lung nodule require interval follow-up. Management discussed with hospitalist at approximately 1:38 AM. Hospitalist accepts admission to observation. Plan of care discussed with patient she agrees to admission [facility] for further evaluation and treatment. Portions of this note were created with voice recognition technology. There may be grammatical, spelling, punctuation or sound alike errors Complexity problem addressed is moderate acute complicated Critical care time Complex of data reviewed and analyzed is extensive test ordered test reviewed results analyzed and correlated clinically with history and physical exam. Management discussed with hospitalist who accepts admission to observation Risk of complication and or risk morbidity/mortality patient management is high. Patient requires hospitalization for further evaluation and treatment. Portions of this note were created with voice recognition technology. There may be grammatical, spelling, punctuation or sound alike errors 01/16/24 02:07 Counseled pt/family regarding: lab results, diagnosis, rad results - Departure Departure Disposition: Home Clinical Impression: Pyelonephritis, Fever, UTI (urinary tract infection), Total bilirubin, elevated, Transaminitis, Leukocytosis, High anion gap metabolic acidosis Condition: Stable Critical Care Time: No Referrals: JUVENTINO [facility]H [facility] [Primary Care Provider] - Follow up/PCP as directed
[2024-01-16] MEDS ORDERED: Sodium Chloride 0.9% 1000 ML 1,000 ML ONE (01:38)
[2024-01-16] MEDS: Sodium Chloride 0.9% 1000 ML 1,000 ML IV SCH ×2 (01:40→03:20)
--- NOTE | 2024-01-16 02:53 | PCM.HP ---
History of Present Illness - Chief Complaint Chief Complaint: UTI Date: 01/16/24 History of Present Illness: is a 24 year old female with no signifiant PMH 24-year-old female presents to our ED with right flank pain and fever at home. she took AB for some days and then stopped it, now c/o Right flank pain, no hematuria,no othe rSx reported. No Nausea/vomiting.Pt not aware aboutt he name of AB, she gets frequent UTI but not aware about MDR. In the ER she was afebrile,Physical exam reveals right CVA tenderness.Workup reveals a leukocytosis urinary tract infection/pyelonephritis. Incidental elevated total bili with a transaminitis. CT scan reveals diffuse hepatosplenomegaly with a right lung nodule. The right lung nodule require interval follow-up - Review of Systems Constitutional: Fever Respiratory: No Symptoms Cardiac: No Symptoms Genitourinary Symptoms: Frequency, Flank Pain Skin: No Symptoms Neurological: No Symptoms Psychological: No Symptoms Endocrine: No Symptoms Hematologic/Lymphatic: No Symptoms Immunological/Allergic: No Symptoms Medications & Allergies Home Medications: Home Medication List Levothyroxine Sodium [Synthroid] 175 mcg PO DAILY 10/12/13 [History Confirmed 01/16/24] Hydrocortisone 10 mg PO BID 12/27/17 [History Confirmed 01/16/24] Allergies/Adverse Reactions: Allergies Allergy/AdvReac Type Severity Reaction Status Date / Time ondansetron [From Zofran] Allergy Verified 08/16/23 09:48 ondansetron HCl [From Zofran] Allergy Verified 08/16/23 09:48 - Past Medical History Past Medical History: Yes Neurological History: No Pertinent History ENT History: No Pertinent History Cardiac History: No Pertinent History Respiratory History: Asthma Endocrine Medical History: Hypothyroidism Musculoskelatal History: No Pertinent History GI Medical History: No Pertinent History, Other History: No Pertinent History, Other Pyscho-Social History: Anxiety Reproductive Disorders: Abnormal Uterine Bleeding Comment: outgrew her pituitary gland - Female History Hx Last Menstrual Period: NA Are you now?: No - Past Surgical History Past Surgical History: Yes Neuro Surgical History: No Pertinent History Cardiac History: No Pertinent History Respiratory Surgery: No Pertinent History GI Surgical History: Cholecystectomy Genitourinary Surgical Hx: No Pertinent History Musculskeletal Surgical Hx: No Pertinent History Female Surgical History: No Pertinent History Other Surgical History: egd--2014 (elevated bili, pain)-- no diagnosis Significant Family History: no pertinent family hx - Social History Smoking Status: Smoker, status unknown Exposure to second hand smoke: No Alcohol: None Drug Use: none - Social Determinants of Health Will the patient participate in the screening: Yes Do you worry about a steady place to live?: No Do you have any problems with any of the following?: No known problems In the past 12 months,have you had to go without utilities?: No Have you or anyone in your house had to go without enough: No Transportation Issues: No Has anyone in your support network made you feel unsafe?: No Does the patient want assistance with any of the above?: No - Physical Exam Vital Signs: Vital Signs - 24 hr Temp Pulse Resp BP BP Pulse Ox 01/16/24 02:10 97 01/16/24 02:09 97.9 F 68 20 102/61 99 01/16/24 01:30 71 20 118/74 95 01/16/24 01:00 68 18 107/64 96 01/16/24 00:30 79 18 121/69 96 01/16/24 00:00 82 20 120/65 96 01/15/24 23:30 79 18 106/68 95 01/15/24 23:00 81 20 130/67 95 01/15/24 22:30 82 18 107/65 98 01/15/24 22:13 82 18 112/63 96 01/15/24 22:01 81 20 112/63 96 01/15/24 21:42 99.4 F 88 18 112/65 95 Additional Findings: 01/16/24 02:54 HEENT Young aged, average built in no distress NECK Supple,no thyromegaly, CVS S1+S2 + 0, no murmers RESP Bilateral equal air entry without Crepts/Wheezes heard GIT Soft non tender,non distended Skin, No rah, no Bruises LEGS No Edema PSYCH Normal,m ood, judgement and insight NEURO AOX3, no focal deficit Results - Labs Lab/Micro Results: Lab Results-Last 24 Hours 01/15/24 01/15/24 01/15/24 Range/Units 22:20 22:33 22:33 WBC 14.1 H (4.0-10.5) x10^3/uL RBC 4.42 (4.1-5.4) x10^6/uL Hgb 14.2 (12.0-16.0) g/dL Hct 39.9 (35-47) % MCV 90.3 (78-100) fL MCH 32.1 H (26-32) pg MCHC 35.6 (32-36) g/dL RDW 11.9 (11.5-14.0) % Plt Count 215 (150-450) x10^3/uL MPV 11.3 H (7.5-11.0) fL Gran % 68.4 H (36.0-66.0) % Immature Gran % (Auto) 0.7 H (0.00-0.4) % Nucleat RBC Rel Count 0.0 (0.00-0.1) % Eos # (Auto) 0.13 (0-0.5) x10^3/uL Immature Gran # (Auto) 0.10 H (0.00-0.03) x10^3u/L Absolute Lymphs (auto) 2.81 (1.0-4.6) x10^3/uL Absolute Monos (auto) 1.30 (0.0-1.3) x10^3/uL Absolute Nucleated RBC 0.00 (0.00-0.01) x10^3u/L Lymphocytes % 19.9 L (24.0-44.0) % Monocytes % 9.2 (0.0-12.0) % Eosinophils % 0.9 (0.00-5.0) % Basophils % 0.9 (0.0-0.4) % Absolute Granulocytes 9.65 H (1.4-6.9) x10^3/uL Basophils # 0.12 (0-0.4) x10^3/uL Sodium 136 (135-145) mmol/L Potassium 4.0 (3.5-5.1) mmol/L Chloride 100 (98-107) mmol/L Carbon Dioxide 21 L (22-30) mmol/L Anion Gap 18.7 H (5-15) MEQ/L BUN 14 (7-17) mg/dL Creatinine 0.96 (0.52-1.04) mg/dL Estimated GFR 85.3 ML/MIN Glucose 115 H (74-106) mg/dL Lactic Acid (0.4-2.0) Calcium 9.7 (8.4-10.2) mg/dL Total Bilirubin 3.00 H (0.2-1.3) mg/dL AST 131 H (14-36) U/L ALT 77 H (0-35) U/L Alkaline Phosphatase 131 H (38-126) U/L Serum Total Protein 8.5 H (6.3-8.2) g/dL Albumin 4.7 (3.5-5.0) g/dL Urine Color Dark Yellow A (Yellow) Urine Appearance Cloudy A (Clear) Urine pH 5.5 (4.6-8.0) Ur Specific [place] 1.015 (1.005-1.030) Urine Protein 30 (Negative) Urine Glucose (UA) Negative (Negative) mg/dL Urine Ketones Negative (Negative) Urine Blood Negative (Negative) Urine Nitrite Positive A (Negative) Urine Bilirubin Negative (Negative) Urine Urobilinogen 1.0 A (0.2) mg/dL Ur Leukocyte Esterase Large A (Negative) U Hyaline Cast (Auto) 3-5 A (0-2) /LPF Urine Microscopic RBC 21-50 A (0-5) /HPF Urine Microscopic WBC >100 A (0-5) /HPF Ur Epithelial Cells None Seen (None Seen) /HPF Urine Bacteria Many A (None Seen) /HPF Urine Culture Reflexed YES (NO) 01/15/24 Range/Units 22:50 WBC (4.0-10.5) x10^3/uL RBC (4.1-5.4) x10^6/uL Hgb (12.0-16.0) g/dL Hct (35-47) % MCV (78-100) fL MCH (26-32) pg MCHC (32-36) g/dL RDW (11.5-14.0) % Plt Count (150-450) x10^3/uL MPV (7.5-11.0) fL Gran % (36.0-66.0) % Immature Gran % (Auto) (0.00-0.4) % Nucleat RBC Rel Count (0.00-0.1) % Eos # (Auto) (0-0.5) x10^3/uL Immature Gran # (Auto) (0.00-0.03) x10^3u/L Absolute Lymphs (auto) (1.0-4.6) x10^3/uL Absolute Monos (auto) (0.0-1.3) x10^3/uL Absolute Nucleated RBC (0.00-0.01) x10^3u/L Lymphocytes % (24.0-44.0) % Monocytes % (0.0-12.0) % Eosinophils % (0.00-5.0) % Basophils % (0.0-0.4) % Absolute Granulocytes (1.4-6.9) x10^3/uL Basophils # (0-0.4) x10^3/uL Sodium (135-145) mmol/L Potassium (3.5-5.1) mmol/L Chloride (98-107) mmol/L Carbon Dioxide (22-30) mmol/L Anion Gap (5-15) MEQ/L BUN (7-17) mg/dL Creatinine (0.52-1.04) mg/dL Estimated GFR ML/MIN Glucose (74-106) mg/dL Lactic Acid 1.2 (0.4-2.0) Calcium (8.4-10.2) mg/dL Total Bilirubin (0.2-1.3) mg/dL AST (14-36) U/L ALT (0-35) U/L Alkaline Phosphatase (38-126) U/L Serum Total Protein (6.3-8.2) g/dL Albumin (3.5-5.0) g/dL Urine Color (Yellow) Urine Appearance (Clear) Urine pH (4.6-8.0) Ur Specific [place] (1.005-1.030) Urine Protein (Negative) Urine Glucose (UA) (Negative) mg/dL Urine Ketones (Negative) Urine Blood (Negative) Urine Nitrite (Negative) Urine Bilirubin (Negative) Urine Urobilinogen (0.2) mg/dL Ur Leukocyte Esterase (Negative) U Hyaline Cast (Auto) (0-2) /LPF Urine Microscopic RBC (0-5) /HPF Urine Microscopic WBC (0-5) /HPF Ur Epithelial Cells (None Seen) /HPF Urine Bacteria (None Seen) /HPF Urine Culture Reflexed (NO) - Radiology Impressions Radiology Exams & Impressions: Radiology Procedures Category Date Time Status ABDOMEN AND PELVIS W/0 CONTRAS [CT] Stat Exams 01/15/24 22:20 Completed Assessment/Plan (1) Pyelonephritis Current Visit: Yes Status: Acute Onset Date: ~12/27/17 Code(s): N12 - TUBULO-INTERSTITIAL NEPHRITIS, NOT SPCF ACUTE OR CHRONIC (2) Leukocytosis Current Visit: Yes Status: Acute Code(s): D72.829 - ELEVATED WHITE BLOOD CELL COUNT, UNSPECIFIED (3) Transaminitis Current Visit: Yes Status: Acute Code(s): R74.01 - ELEVATION OF LEVELS OF LIVER TRANSAMINASE LEVELS Telemedicine Encounter - Telemedicine Encounter Telemedicine Encounter: The entirety of this encounter was performed via Telemedicine" Acute pyelonephritis Failure to out pt AB,Pt unaware about name of AB C/w ceftriaxone 1 gram every 24hourly keep f/u cultures Metabolic acidosis with AG C/w hydration Close BMp f/u Tramaminitis Pt says she has chronically elevated LFTS due to fatty liver Will trend LFTS C/w hydration Avoiding hepatotoxins Asthma well controled/stable Hypothyroidism Will resume home levothyroxine Abnormal CT CT scan reveals diffuse hepatosplenomegaly with a right lung nodule. The right lung nodule require interval follow-up NOTE-->Pt on steroid as out pt, indication not clear, i will c/w at this time DVT PPX SCD Code status Full D/c planning, Pending clinical stability I have reviewed pt labs, v/s imaging in details ,all questions/concerns were addressed
[2024-01-16 04:57] LABS: Absolute Neutrophil Ct (ANC) 8.33 x10^3/uL (1.4-6.9); BASOPHIL % 0.6 % (0.0-0.4); Basophil (Absolute #) 0.07 x10^3/uL (0-0.4); Eosinophil % 0.3 % (0.00-5.0); Eosinophil (Absolute #) 0.04 x10^3/uL (0-0.5); Hematocrit 38.4 % (35-47); Hemoglobin 13.8 g/dL (12.0-16.0); IMMATURE GRAN # 0.08 x10^3u/L (0.00-0.03); IMMATURE GRAN % 0.7 % (0.00-0.4); Lymphocyte (Absolute #) 2.18 x10^3/uL (1.0-4.6); Lymphocytes % 18.9 % (24.0-44.0); Mean Cell Volume 89.7 fL (78-100); Mean Corpuscular Hemoglobin 32.2 pg (26-32); Mean Corpuscular Hgb Concent. 35.9 g/dL (32-36); Mean Platelet Volume 11.3 fL (7.5-11.0); Monocyte (Absolute #) 0.84 x10^3/uL (0.0-1.3); Monocytes % 7.3 % (0.0-12.0); Neutrophil % 72.2 % (36.0-66.0); Platelet Count 189 x10^3/uL (150-450); Red Blood Count 4.28 x10^6/uL (4.1-5.4); Red Cell Distribution Width 11.9 % (11.5-14.0); White Blood Count 11.5 x10^3/uL (4.0-10.5)
[2024-01-16 05:10] LABS: ALBUMIN 4.6 g/dL (3.5-5.0); ANION GAP 16.2 MEQ/L (5-15); BILIRUBIN,TOTAL 2.9 mg/dL (0.2-1.3); Calcium 9.4 mg/dL (8.4-10.2); Creatinine 1 0.75 mg/dL (0.52-1.04); EST GLOMERULAR FILTRATION RATE 114.7 ML/MIN; Potassium 4.1 mmol/L (3.5-5.1); Total Protein 8.5 g/dL (6.3-8.2)
[2024-01-16 07:34] VITALS: RESP 16
[2024-01-16 08:26] LABS: TSH, 3RD Generation 6.2 mIU/L (0.470-4.680)
[2024-01-16 08:42] LABS: Amphetamine,Urine NEGATIVE (NEGATIVE); Barbiturate,Urine NEGATIVE (NEGATIVE); Benzodiazepine,Urine NEGATIVE (NEGATIVE); Cocaine,Urine NEGATIVE (NEGATIVE); Methadone,Urine NEGATIVE (NEGATIVE); Opiate,Urine NEGATIVE (NEGATIVE); PCP,Urine NEGATIVE (NEGATIVE); THC,Urine NEGATIVE (NEGATIVE)
[2024-01-16] MEDS: SYNTHROID 125 MCG PO SCH (09:25)
[2024-01-16] MEDS: HYDROCORTISONE PO SCH (09:25)
[2024-01-16] MEDS: SYNTHROID 25 MCG PO SCH (09:25)
[2024-01-16] MEDS ORDERED: ULTRAM 50 MG PO PRN (09:34)
[2024-01-16] MEDS ORDERED: HYDROCORTISONE 5 MG PO SCH (10:00)
[2024-01-16] MEDS ORDERED: SYNTHROID 25 MCG PO SCH (10:00)
--- NOTE | 2024-01-16 11:55 | XRAY ---
Indication: Hepatosplenomegaly on CT. Two-dimensional abdominal sonogram performed. Comparison: None Pancreas not well seen due to overlying bowel gas. Visualized spleen and liver are homogeneous echogenicity. Fatty echogenic hepatomegaly measuring 21.3 cm. Spleen is enlarged measuring 16 cm. Previous cholecystectomy. No free fluid. Common bile duct measures 3.4 mm. No intrahepatic biliary distention. Visualized aorta and IVC are normal in course and caliber. Right kidney measures 12.5 x 3.9 x 5.0 cm and left measures 11.1 x 5.8 x 5.6 cm. No focal solid/cystic renal mass or hydronephrosis. Impression: Fatty hepatomegaly, splenomegaly, and cholecystectomy. Remaining abdominal sonogram is negative.
[2024-01-16] MEDS: TYLENOL 325 MG PO PRN (21:37)
[2024-01-16] MEDS: ROCEPHIN 2 GM/100 ML NACL 2 GM/100 ML IVPB IV SCH (21:46)
[2024-01-17 04:54] LABS: Hematocrit 32.3 % (35-47); Hemoglobin 11.3 g/dL (12.0-16.0); Mean Corpuscular Hemoglobin 31.8 pg (26-32); Mean Platelet Volume 11.3 fL (7.5-11.0); Platelet Count 163 x10^3/uL (150-450); Red Blood Count 3.55 x10^6/uL (4.1-5.4); Red Cell Distribution Width 12.1 % (11.5-14.0); White Blood Count 10.7 x10^3/uL (4.0-10.5)
[2024-01-17 05:12] LABS: ALBUMIN 4.2 g/dL (3.5-5.0); ANION GAP 12.8 MEQ/L (5-15); BILIRUBIN,TOTAL 1.1 mg/dL (0.2-1.3); Calcium 8.8 mg/dL (8.4-10.2); Creatinine 1 0.56 mg/dL (0.52-1.04); EST GLOMERULAR FILTRATION RATE 131.4 ML/MIN; Total Protein 7.5 g/dL (6.3-8.2)
[2024-01-17 06:58] VITALS: O2SAT 95
[2024-01-17 08:13] LABS: HBsAg Screen Negative (Negative); HCV Ab Non Reactive (Non Reactive); Hep A Ab, IgM Negative (Negative); Hep B Core Ab, IgM Negative (Negative)
[2024-01-17 10:24] LABS: INFLUENZA A NEGATIVE (NEGATIVE); INFLUENZA B NEGATIVE (NEGATIVE); RESPIRATORY SYNCTIAL VIRUS NEGATIVE (NEGATIVE); SARS-CoV-2 Xpert Express NEGATIVE (NEGATIVE)
--- NOTE | 2024-01-17 10:34 | PCM.DS ---
Discharge Summary Date of Admission: 01/16/24 02:03 Date of Discharge: 01/17/24 Admitting Physician: REEMA WADSWORTH MD Primary Care Provider: JUVENTINO YEH NP Allergies Allergies ondansetron [From Zofran] Allergy (Verified 08/16/23 09:48) ondansetron HCl [From Zofran] Allergy (Verified 08/16/23 09:48) Hospital Summary - Hospital Course Hospital Course: 01/17/24 is a 24 year old female with with PMHX of fatty liver disease- genetic and follows Dr. Mathews- GI, anxiety and smoker. She presented to our ED on 01/16/24 with right flank pain and fever at home. She reports she took ABX for some days and then stopped it, c/o Right flank pain, no hematuria,no other Sx reported. No Nausea/vomiting. Pt not aware about he name of ABX, she gets frequent UTI but not aware about MDR. In the ER she was afebrile. Workup in ER revealed a leukocytosis urinary tract infection She is no longer having right CVA tenderness or abd tenderness today.. CT negative for pyelonephritis. CT scan reveals diffuse hepatosplenomegaly with a right lung nodule. Pt reports a known hx of both of these findgings and f/u Op for these things. WBC normal, Bili WNL, liver enzymes trending down. She has not had a fever since admission. She c/o body aches today. Flu/COVID/RSV negative. She denies CP, SOB, abd. pain, N/V/D. Will d/c with antibiotics for UTI. - Vitals & Intake/Output Vital Signs: Vital Signs Temperature 96.4 F 01/17/24 06:57 Pulse Rate 99 H 01/17/24 06:57 Respiratory Rate 16 01/17/24 06:57 Blood Pressure 104/56 01/17/24 06:57 O2 Sat by Pulse Oximetry 95 01/17/24 06:57 Intake & Output: Intake & Output 01/14/24 01/15/24 01/16/24 01/17/24 11:59 11:59 11:59 11:59 Intake Total 240 3969 Output Total 500 1800 Balance -260 2169 Weight 57.8 kg - Lab Result Diagrams: 01/17/24 04:25 01/17/24 04:25 Lab Results-Last 24 Hrs: Lab Results-Last 24 Hours 01/16/24 01/17/24 01/17/24 Range/Units 08:14 04:25 04:25 WBC 10.7 H (4.0-10.5) x10^3/uL RBC 3.55 L (4.1-5.4) x10^6/uL Hgb 11.3 L (12.0-16.0) g/dL Hct 32.3 L (35-47) % MCV 91.0 (78-100) fL MCH 31.8 (26-32) pg MCHC 35.0 (32-36) g/dL RDW 12.1 (11.5-14.0) % Plt Count 163 (150-450) x10^3/uL MPV 11.3 H (7.5-11.0) fL Sodium 141 (135-145) mmol/L Potassium 4.0 (3.5-5.1) mmol/L Chloride 113 H (98-107) mmol/L Carbon Dioxide 20 L (22-30) mmol/L Anion Gap 12.8 (5-15) MEQ/L BUN 8 (7-17) mg/dL Creatinine 0.56 (0.52-1.04) mg/dL Estimated GFR 131.4 ML/MIN Glucose 161 H (74-106) mg/dL Calcium 8.8 (8.4-10.2) mg/dL Total Bilirubin 1.10 (0.2-1.3) mg/dL AST 96 H (14-36) U/L ALT 97 H (0-35) U/L Alkaline Phosphatase 132 H (38-126) U/L Serum Total Protein 7.5 (6.3-8.2) g/dL Albumin 4.2 (3.5-5.0) g/dL Hepatitis A IgM Ab Negative (Negative) Hep Bs Antigen Negative (Negative) Hep B Core IgM Ab Negative (Negative) Hep C Ab Signal/Cutoff Non Reactive (Non Reactive) Hepatitis C Interp Comment (.) Micro Results-Entire Visit: Microbiology 01/15/24 22:20 Urine Culture - Preliminary Clean Catch Midstream GRAM NEGATIVE ID AND SENSITIVITY PENDING - Radiology Exams Ordered Rad Exams-Entire Visit: Radiology Procedures Category Date Time Status ABDOMEN AND PELVIS W/0 CONTRAS [CT] Stat Exams 01/15/24 22:20 Completed UPPER ABDOMEN [US] Routine Exams 01/16/24 07:30 Completed Discharge Exam General Appearance: no apparent distress, alert Neurologic Exam: alert, oriented x 3, cooperative, normal mood/affect, nml cerebellar function, sensation nml, No motor deficits Eye Exam: PERRL, EOMI, eyes nml inspection Ears, Nose, Throat Exam: normal ENT inspection, pharynx normal, moist mucous membranes Neck Exam: normal inspection, non-tender, supple, full range of motion Respiratory Exam: normal breath sounds, lungs clear, No respiratory distress Cardiovascular Exam: regular rate/rhythm, normal heart sounds Gastrointestinal/Abdomen Exam: soft, No tenderness, No mass Pelvic Exam: deferred Rectal Exam: deferred Back Exam: normal inspection, normal range of motion, No CVA tenderness, No vertebral tenderness Extremity Exam: normal inspection, normal range of motion Skin Exam: normal color, warm, dry Final Diagnosis/Problem List - Final Discharge Diagnosis/Problem (1) UTI (urinary tract infection) Current Visit: Yes Status: Acute Assessment & Plan: - Ceftriaxone - IVF - Will d/c with Op antibiotocs - Body aches likely related - UC gram negative, sensitivity pending- will follow culture Code(s): N39.0 - URINARY TRACT INFECTION, SITE NOT SPECIFIED (2) Fever Current Visit: Yes Status: Resolved Assessment & Plan: - no fever since admission Code(s): R50.9 - FEVER, UNSPECIFIED (3) High anion gap metabolic acidosis Current Visit: Yes Status: Resolved Assessment & Plan: - Resolved Code(s): E87.29 - OTHER ACIDOSIS (4) Leukocytosis Current Visit: Yes Status: Acute Assessment & Plan: - improved WBC trending down 10.7 - Will need OP f/u labs Code(s): D72.829 - ELEVATED WHITE BLOOD CELL COUNT, UNSPECIFIED (5) Total bilirubin, elevated Current Visit: Yes Status: Acute Code(s): R17 - UNSPECIFIED JAUNDICE (6) Elevated liver function tests Current Visit: No Status: Chronic Assessment & Plan: - Pt reports this is chronic and follows OP with Dr. Razo GI - She reports a genetic d/c of liver - Liver enzymes trending down, she will need to f/u OP with GI - Abd CT: 01/14 IMPRESSION: 1. Diffuse hepatsplenomegaly with liver measuring 22.0 cm and spleen measuring 16.0 cm. No pathologically enlarged mesenteric or pelvic side wall lymphadenopathy. Clinical work up is advised. 2. A 7.3 mm semisolid soft tissue nodule is noted in right basal lung. Interval follow up at 3-6 months is advised according to Fleischner guidelines. - US Abd. 01/15 Impression: Fatty hepatomegaly, splenomegaly, and cholecystectomy. Remaining abdominal sonogram is negative - Hep panel negative Code(s): R79.89 - OTHER SPECIFIED ABNORMAL FINDINGS OF BLOOD CHEMISTRY (7) Lung nodule seen on imaging study Current Visit: Yes Status: Chronic Assessment & Plan: - Pt reports this is chronic and she is aware- she follows OP for this with PCP Code(s): R91.1 - SOLITARY PULMONARY NODULE - Discharge Discharge Date: 01/17/24 Disposition: Home, Self-Care Condition: Stable Prescriptions: Continue Levothyroxine Sodium [Synthroid] 175 mcg PO DAILY Hydrocortisone 10 mg PO BID Follow up with: JUVENTINO YEH NP [Primary Care Provider] -
[2024-01-17 11:58] VITALS: BP 113/74; PULSE 59; TEMP 97.5
== END 2024-01-17 13:04 | disposition home or self-care (01) ==
LOC: ED 21:13 → MED SURG 01-16 02:03
PROVIDERS: ADMIT Internal Medicine; ATTEND Internal Medicine
DX: N39.0 Urinary tract infection, site not specified (principal); R50.9 Fever, unspecified; E87.29 Other acidosis; D72.829 Elevated white blood cell count, unspecified; R17 Unspecified jaundice; R79.89 Other specified abnormal findings of blood chemistry; R91.1 Solitary pulmonary nodule; F17.200 Nicotine dependence, unspecified, uncomplicated; N12 Tubulo-interstitial nephritis, not specified as acute or chronic; R74.01 Elevation of levels of liver transaminase levels; E03.9 Hypothyroidism, unspecified
CPT/HCPCS: 0241U; 36000; 36415; 74176; 76700; 80053; 80061; 80074; 80307; 81001; 83036; 83605; 83721; 84443; 85025; 85027; 86308; 87077; 87086; 87186; 96365; 99285; G0378; J0696; A9270-GY

== ENCOUNTER 2024-05-29 13:37 | Emergency (ER) | payer MEDICAID ==
[2024-05-29 15:05] VITALS: TEMP 36.9
[2024-05-29 15:30] LABS: Appearance Cloudy (Clear); Bacteria Many /HPF (None Seen); Bilirubin Negative (Negative); Blood Negative (Negative); Epithelial Cells None Seen /HPF (None Seen); Glucose, Urine Negative (Negative); Hyaline Casts NONE SEEN /LPF (0-2); Ketones Negative (Negative); Leukocyte Esterase Moderate (Negative); Nitrite Positive (Negative); Ph 6.5 (4.6-8.0); Protein,Urine Dip Negative (Negative); RBC 0-2 /HPF (0-5); WBC 21-50 /HPF (0-5)
[2024-05-29 15:31] LABS: ADD URINE CULTURE? YES (NO)
--- NOTE | 2024-05-29 15:46 | ERPHSYRPT ---
- History of Present Illness Time Seen by Provider: 05/29/24 15:01 Patient Subjective Stated Complaint: ABD PAIN Triage Nursing Assessment: PATIENT STATES THAT SHE STARTED HAVING ABD PAIN FOR 1 WEEK. IT NOW IS INCREASING IN SEVERITY. IT IS MORE ON THE RIGHT SIDE AND RADIATES OVERT TO THE UMBILLICUS. Physician History: 24 years old female with history of hypopituitarism, hypothyroidism, recurrent UTIs presented in the ER with complaint of right sided abdominal pain for 1 week with progressive worsening. Patient reports moderate to severe sharp pain, aggravated with movements palpation and associated nausea and dry heaving. Also reports increased urinary frequency with dysuria but no urgency or hesitancy. Denies any hematuria. No fever or chills reported. Allergies/Adverse Reactions: ondansetron [From Zofran] Allergy (Verified 08/16/23 09:48) ondansetron HCl [From Zofran] Allergy (Verified 05/29/24 15:06) Vomiting Home Medications: Levothyroxine Sodium [Synthroid] 175 mcg PO DAILY 10/12/13 [History] Hydrocortisone 10 mg PO BID 12/27/17 [History] Hx Tetanus, Diphtheria Vaccination/Date Given: Yes Hx Influenza Vaccination/Date Given: No Hx Pneumococcal Vaccination/Date Given: No Travel Risk - International Travel Have you traveled outside of the country in past 3 weeks: No - Emerging Infectious Disease Are you exhibiting symptoms associated with any current EIDs: No Symptoms: Abdominal Pain - Review of Systems Constitutional: No Symptoms Eyes: No Symptoms Ears, Nose, & Throat: No Symptoms Respiratory: No Symptoms Cardiac: No Symptoms Abdominal/Gastrointestinal: Abdominal Pain, Nausea Genitourinary Symptoms: Dysuria, Frequency Musculoskeletal: No Symptoms Skin: No Symptoms Neurological: No Symptoms Psychological: No Symptoms Hematologic/Lymphatic: No Symptoms Immunological/Allergic: No Symptoms - Past Medical History Pertinent Past Medical History: Yes Neurological History: No Pertinent History ENT History: No Pertinent History Cardiac History: No Pertinent History Respiratory History: Asthma Endocrine Medical History: Hypothyroidism Musculoskeletal History: No Pertinent History GI Medical History: No Pertinent History, Other History: No Pertinent History, Other Psycho-Social History: Anxiety Female Reproductive Disorders: Abnormal Uterine Bleeding 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 - Past Surgical History Past Surgical History: Yes Neuro Surgical History: No Pertinent History Cardiac: No Pertinent History Respiratory: No Pertinent History Gastrointestinal: Cholecystectomy Genitourinary: No Pertinent History Musculoskeletal: No Pertinent History Female Surgical History: No Pertinent History Other Surgical History: egd--2014 (elevated bili, pain)-- no diagnosis Significant Family History: no pertinent family hx - Female History Hx Last Menstrual Period: N/A Hx Now: (unkn) - Social History Smoking Status: Never smoker Exposure to second hand smoke: No Alcohol Use: None Drug Use: none Patient Lives Alone: No - Social Determinants of Health Will the patient participate in the screening: Yes Do you worry about a steady place to live?: No In the past 12 months,have you had to go without utilities?: No Transportation Issues: No Has anyone in your support network made you feel unsafe?: No Have you or anyone in your house had to go without enough: No - Nursing Vital Signs Nursing Vital Signs: Initial Vital Signs Temperature 36.9 F 05/29/24 14:57 Pulse Rate 79 05/29/24 14:57 Respiratory Rate 16 05/29/24 14:57 Blood Pressure 110/58 05/29/24 14:57 O2 Sat by Pulse Oximetry 100 05/29/24 14:57 Pain Scale Pain Intensity 3 - Physical Exam General Appearance: no apparent distress, alert Eye Exam: PERRL/EOMI Ears, Nose, Throat Exam: moist mucous membranes Neck Exam: normal inspection, non-tender, supple, full range of motion Respiratory Exam: normal breath sounds, lungs clear Cardiovascular Exam: regular rate/rhythm, normal heart sounds Gastrointestinal/Abdomen Exam: tenderness, guarding (Right side) Back Exam: normal inspection, normal range of motion, CVA tenderness (Right side) Extremity Exam: normal inspection, normal range of motion Neurologic Exam: alert, oriented x 3, cooperative Skin Exam: normal color SpO2 Interpretation: normal SpO2: 100 O2 Delivery: Room Air Ordered Tests: Active Orders 24 hr Category Date Time Status ABDOMEN AND PELVIS W/0 CONTRAS [CT] Stat Exams 05/29/24 15:44 Completed CBC W DIFF Stat Lab 05/29/24 17:00 Completed CMP Stat Lab 05/29/24 15:44 Completed CULTURE,URINE Stat Lab 05/29/24 14:37 Received HCG QUALITATIVE, URINE Stat Lab 05/29/24 Completed LIPASE Stat Lab 05/29/24 15:44 Completed Lactic Acid Stat Lab 05/29/24 15:44 Completed UA W/RFX UR CULTURE Stat Lab 05/29/24 14:37 Completed Medication Summary Discontinued Medications Generic Name Dose Route Start Last Admin Trade Name Jacques PRN Reason Stop Dose Admin Sodium Chloride 1,000 mls @ 999 mls/hr 05/29/24 15:44 05/29/24 17:38 Sodium Chloride 0.9% 1000 Ml IV 05/29/24 16:44 Infused .Q1H1M STA Infusion Sodium Chloride Confirm 05/29/24 15:48 Sodium Chloride 0.9% 1000 Ml Administered 05/29/24 15:49 Dose 1,000 mls @ ud .ROUTE .STK-MED ONE Ceftriaxone Sodium 2 gm in 100 mls @ 200 mls/hr 05/29/24 17:36 05/29/24 19:04 Rocephin 2 Gm/100 Ml Nacl IV 05/29/24 18:05 Infused STAT ONE Infusion Ceftriaxone Sodium Confirm 05/29/24 17:54 Rocephin 2 Gm/100 Ml Nacl Administered 05/29/24 17:55 Dose 2 gm in 100 mls @ ud IV .STK-MED ONE Ketorolac Tromethamine 30 mg 05/29/24 15:44 05/29/24 15:49 Ketorolac Tromethamine 30 Mg/Ml Inj IV 05/29/24 15:45 30 mg STAT ONE Administration Ketorolac Tromethamine Confirm 05/29/24 15:48 Ketorolac Tromethamine 30 Mg/Ml Inj Administered 05/29/24 15:49 Dose 30 mg .ROUTE .STK-MED ONE Lab/Rad Data: Laboratory Result Diagrams 05/29/24 17:00 05/29/24 15:44 Laboratory Results 05/29/24 05/29/24 05/29/24 Range/Units Unknown 17:00 15:44 WBC 7.4 (3.98-10.04) x10^3/uL RBC 4.18 (3.93-5.22) x10^6/uL Hgb 13.5 (11.2-15.7) g/dL Hct 37.5 (34.1-44.9) % MCV 89.7 (79.4-94.8) fL MCH 32.3 H (25.6-32.2) pg MCHC 36.0 H (32.2-35.5) g/dL RDW 12.1 (11.7-14.4) % Plt Count 129 L (182-369) x10^3/uL MPV 11.9 (9.4-12.3) fL Gran % 34.7 (34.0-71.1) % Immature Gran % (Auto) 0.7 H (0.001-0.429) % Nucleat RBC Rel Count 0.0 (0.00-0.2) % Eos # (Auto) 0.34 (0.04-0.36) x10^3/uL Immature Gran # (Auto) 0.05 H (0.001-0.031) x10^3u/L Absolute Lymphs (auto) 3.91 H (1.18-3.74) x10^3/uL Absolute Monos (auto) 0.43 (0.24-0.86) x10^3/uL Absolute Nucleated RBC 0.00 (0.00-0.012) x10^3u/L Lymphocytes % 53.1 H (19.3-51.7) % Monocytes % 5.8 (4.7-12.5) % Eosinophils % 4.6 (0.7-5.8) % Basophils % 1.1 (0.1-1.2) % Absolute Granulocytes 2.55 (1.56-6.13) x10^3/uL Basophils # 0.08 (0.01-0.08) x10^3/uL Sodium 137 (135-145) mmol/L Potassium 3.9 (3.5-5.1) mmol/L Chloride 103 (98-107) mmol/L Carbon Dioxide 23 (22-30) mmol/L Anion Gap 15.0 (5-15) MEQ/L BUN 13 (7-17) mg/dL Creatinine 0.53 (0.52-1.04) mg/dL Estimated GFR 133.2 ML/MIN Glucose 85 (74-106) mg/dL Lactic Acid (0.4-2.0) Calcium 10.0 (8.4-10.2) mg/dL Total Bilirubin 3.10 H (0.2-1.3) mg/dL AST 159 H (14-36) U/L ALT 228 H (0-35) U/L Alkaline Phosphatase 164 H (38-126) U/L Serum Total Protein 7.8 (6.3-8.2) g/dL Albumin 4.7 (3.5-5.0) g/dL Lipase 136 (23-300) U/L Urine Color (Yellow) Urine Appearance (Clear) Urine pH (4.6-8.0) Ur Specific [place] (1.005-1.030) Urine Protein (Negative) Urine Glucose (UA) (Negative) mg/dL Urine Ketones (Negative) Urine Blood (Negative) Urine Nitrite (Negative) Urine Bilirubin (Negative) Urine Urobilinogen (0.2) mg/dL Ur Leukocyte Esterase (Negative) U Hyaline Cast (Auto) (0-2) /LPF Urine Microscopic RBC (0-5) /HPF Urine Microscopic WBC (0-5) /HPF Ur Epithelial Cells (None Seen) /HPF Urine Bacteria (None Seen) /HPF Urine Culture Reflexed (NO) Urine HCG, Qual NEGATIVE (NEGATIVE) 05/29/24 05/29/24 Range/Units 15:44 14:37 WBC (3.98-10.04) x10^3/uL RBC (3.93-5.22) x10^6/uL Hgb (11.2-15.7) g/dL Hct (34.1-44.9) % MCV (79.4-94.8) fL MCH (25.6-32.2) pg MCHC (32.2-35.5) g/dL RDW (11.7-14.4) % Plt Count (182-369) x10^3/uL MPV (9.4-12.3) fL Gran % (34.0-71.1) % Immature Gran % (Auto) (0.001-0.429) % Nucleat RBC Rel Count (0.00-0.2) % Eos # (Auto) (0.04-0.36) x10^3/uL Immature Gran # (Auto) (0.001-0.031) x10^3u/L Absolute Lymphs (auto) (1.18-3.74) x10^3/uL Absolute Monos (auto) (0.24-0.86) x10^3/uL Absolute Nucleated RBC (0.00-0.012) x10^3u/L Lymphocytes % (19.3-51.7) % Monocytes % (4.7-12.5) % Eosinophils % (0.7-5.8) % Basophils % (0.1-1.2) % Absolute Granulocytes (1.56-6.13) x10^3/uL Basophils # (0.01-0.08) x10^3/uL Sodium (135-145) mmol/L Potassium (3.5-5.1) mmol/L Chloride (98-107) mmol/L Carbon Dioxide (22-30) mmol/L Anion Gap (5-15) MEQ/L BUN (7-17) mg/dL Creatinine (0.52-1.04) mg/dL Estimated GFR ML/MIN Glucose (74-106) mg/dL Lactic Acid 1.3 (0.4-2.0) Calcium (8.4-10.2) mg/dL Total Bilirubin (0.2-1.3) mg/dL AST (14-36) U/L ALT (0-35) U/L Alkaline Phosphatase (38-126) U/L Serum Total Protein (6.3-8.2) g/dL Albumin (3.5-5.0) g/dL Lipase (23-300) U/L Urine Color Yellow (Yellow) Urine Appearance Cloudy A (Clear) Urine pH 6.5 (4.6-8.0) Ur Specific [place] 1.010 (1.005-1.030) Urine Protein Negative (Negative) Urine Glucose (UA) Negative (Negative) mg/dL Urine Ketones Negative (Negative) Urine Blood Negative (Negative) Urine Nitrite Positive A (Negative) Urine Bilirubin Negative (Negative) Urine Urobilinogen 2.0 A (0.2) mg/dL Ur Leukocyte Esterase Moderate A (Negative) U Hyaline Cast (Auto) NONE SEEN (0-2) /LPF Urine Microscopic RBC 0-2 (0-5) /HPF Urine Microscopic WBC 21-50 A (0-5) /HPF Ur Epithelial Cells None Seen (None Seen) /HPF Urine Bacteria Many A (None Seen) /HPF Urine Culture Reflexed YES (NO) Urine HCG, Qual (NEGATIVE) - Progress Progress: improved, re-examined Progress Note: 05/29/24 20:34 44 years old with history of hypopituitarism, hypothyroidism on steroids is evaluated in the ER for abdominal pain more on the right side with nausea and some UTI symptoms. She is given fluids and symptomatic treatment, on reevaluation she is feeling much better. Workup showed normal white count, chemistries with normal kidney functions but elevated transaminases with ALT in 200s and AST in 100s and a bilirubin 3.1. Patient had a similar elevation in liver enzymes few months ago which improved after fluids. Patient has not followed up with any gastroenterology. She denies any fever or chills. Patient does have UTI and given dose of Rocephin. CT showed diffuse hepatosplenomegaly with no ascites and no other acute findings but thickening of gallbladder wall for which she is given antibiotics already. Patient had a similar findings in the CT last time in January 2024. I have discussed with Dr. Whalen who recommended discussion and possible transfer to facility with GI services. I have called [facility] and discussed with Dr. Reanna SALGADO, reviewed history, workup, recommended patient to take liquid and soft diet, double dose PPIs, pain control and can be discharged with outpatient follow-up in the clinic for further evaluation of this hepatosplenomegaly and liver enzymes elevation. As patient possibly developing autoimmune hepatitis with repeated elevation in his liver enzymes. Do not think patient needs to be admitted. I have discussed with patient and family, will give pain medication, antibiotics to go home along with PPI and outpatient GI follow-up. Discussed signs symptoms of worsening needing return to ER which the seem understanding. Stable for discharge. Discussed with Dr.: Other (Dr. Whalen hospitalist and [facility]) Counseled pt/family regarding: lab results, diagnosis, need for follow-up, rad results Medical Desision Making - Independent Historian Additional History obtained from: Mother - Discussion of managment Care discussed with:: specialist (Dr. Lex SALGADO [place] and Dr. Whalen hospitalist [facility]) Reviewed:: Test results, Need for additional workup Agreed on:: Treatment plan, need for follow-up Will see patient: In office - Diagnostic Testing Diagnostic test were ordered, analyzed, and reviewed by me: Yes Radiological Interpretation: Reviewed by me, Teleradiologist Report - Risk of complications The pt has a mod risk of morbidity or mortality based on: Need for prescription drug management - Departure Departure Disposition: Home Clinical Impression: Acute UTI (urinary tract infection), Hepatosplenomegaly, Elevated liver function tests Condition: Stable Critical Care Time: No Referrals: JUVENTINO YEH NP [Primary Care Provider] - Follow up with PCP 1 day Instructions: Urinary tract infections in adults, Severe Abdominal Pain, Adult (DC) Additional Instructions: Follow-up with [facility] gastro[facility]ology clinic, call for appointment. Take liquid and soft diet. Follow-up with primary care as well for reevaluation. Return to ER for increasing pain, intractable vomiting, difficulty urination or if develop fever chills etc. [email or web address] [address] [place] [address] Prescriptions: Tramadol HCl 50 mg [Ultram 50 mg] 50 mg PO Q6HPRN PRN 3 Days #12 tablet PRN Reason: Pain PANTOPRAZOLE 40 mg Tablet [Protonix 40MG Tablet] 40 mg PO BID 30 Days #60 tab Cefpodoxime Proxetil 200 mg [Vantin 200 mg] 200 mg PO BID 7 Days #14 tablet
[2024-05-29] MEDS ORDERED: TORAdol 30 mg Injection ONE (15:48)
[2024-05-29] MEDS ORDERED: Sodium Chloride 0.9% 1000 ML 1,000 ML ONE (15:48)
[2024-05-29] MEDS: TORAdol 30 mg Injection IV ONE (15:49)
[2024-05-29] MEDS: Sodium Chloride 0.9% 1000 ML 1,000 ML IV STA (15:52)
[2024-05-29 15:54] LABS: HCG URINE TEST NEGATIVE (NEGATIVE)
[2024-05-29 16:36] LABS: ALBUMIN 4.7 g/dL (3.5-5.0); BILIRUBIN,TOTAL 3.1 mg/dL (0.2-1.3); Creatinine 1 0.53 mg/dL (0.52-1.04); EST GLOMERULAR FILTRATION RATE 133.2 ML/MIN; Potassium 3.9 mmol/L (3.5-5.1); Total Protein 7.8 g/dL (6.3-8.2)
--- NOTE | 2024-05-29 17:04 | XRAY ---
CLINICAL HISTORY: right side pain COMPARISON: Previous CT dated 01/15/2024 TECHNIQUE: CT scan of the abdomen and pelvis was performed without IV contrast. Coronal and sagittal reconstructions were also obtained. One of the following dose reduction techniques was utilized for this exam. Automated exposure control, adjustment of the mA and/or kV according to patient size, and use of iterative reconstruction. FINDINGS: Liver is grossly enlarged measuring 25.0 cm, with diffuse hypoattenuation of the parenchyma consistent with fatty infiltration. It has normal shape with regular margins. No focal parenchymal abnormality. No hepatic mass is identified. The portal vein, intrahepatic biliary radicals and the bile ducts are normal. Gall bladder is surgically absent. Common bile duct appears normal. Pancreas appears normal. No peripancreatic fat stranding, pancreatic pseudocyst or peripancreatic fluid collection. Spleen is enlarged measuring 16.0 cm. It shows a few scattered tiny calcific foci, most likely corresponding to granulomas. No mass lesion is noted. Both adrenal glands are unremarkable. Both kidneys are normal in size, shape and orientation. No calculi, cyst mass or hydronephrosis seen on either side. Both ureters appear normal. The urinary bladder shows mildly diffuse thickened wall (0.9 cm), for clinical correlation. Stomach and small bowel loops are unremarkable. Caecum and ileocecal junction appear normal. No abnormal gut wall thickening or mass lesion is appreciated. No evidence of bowel obstruction. Pelvic viscera show normal morphology. Uterus and both adnexa appear normal. Appendix is normal. No evidence of significant enlargement of the mesenteric or retroperitoneal lymph nodes. Multiple small volume celiac, superior mesenteric and para-aortic nodes are redemonstrated. Visualized thoracic and lumbar spine show mild schmorl node formation. No lytic or sclerotic destructive lesions in visualized bones. Stable 7.3 mm semisolid soft tissue nodule is noted in right basal lung, it appear more hypodense than previous CT. No pleural or pericardial effusion seen. IMPRESSION: 1. Diffuse hepatosplenomegaly with liver measuring 25.0 cm and spleen measuring 16.0 cm. No pathologically enlarged mesenteric or pelvic side wall lymphadenopathy. Clinical work up is advised. 2. Hepatic steatosis is also noted. 3. Diffuse thickened-walled urinary bladder (0.9 cm), for clinical and laboratory correlation. 4. Stable 7.3 mm semisolid soft tissue nodule is noted in right basal lung, it appear more hypodense than previous CT. 5. No significant interval change noted from previous CT. Electronically Signed by: Lucero Laughlin MD. (05/29/2024 17:00:11 EDT)
[2024-05-29 17:19] LABS: Absolute Neutrophil Ct (ANC) 2.55 x10^3/uL (1.56-6.13); BASOPHIL % 1.1 % (0.1-1.2); Basophil (Absolute #) 0.08 x10^3/uL (0.01-0.08); Eosinophil % 4.6 % (0.7-5.8); Eosinophil (Absolute #) 0.34 x10^3/uL (0.04-0.36); Hematocrit 37.5 % (34.1-44.9); Hemoglobin 13.5 g/dL (11.2-15.7); IMMATURE GRAN # 0.05 x10^3u/L (0.001-0.031); IMMATURE GRAN % 0.7 % (0.001-0.429); Lymphocyte (Absolute #) 3.91 x10^3/uL (1.18-3.74); Lymphocytes % 53.1 % (19.3-51.7); Mean Cell Volume 89.7 fL (79.4-94.8); Mean Corpuscular Hemoglobin 32.3 pg (25.6-32.2); Mean Platelet Volume 11.9 fL (9.4-12.3); Monocyte (Absolute #) 0.43 x10^3/uL (0.24-0.86); Monocytes % 5.8 % (4.7-12.5); Neutrophil % 34.7 % (34.0-71.1); Platelet Count 129 x10^3/uL (182-369); Red Blood Count 4.18 x10^6/uL (3.93-5.22); Red Cell Distribution Width 12.1 % (11.7-14.4); White Blood Count 7.4 x10^3/uL (3.98-10.04)
[2024-05-29] MEDS ORDERED: ROCEPHIN 2 GM/100 ML NACL 2 GM/100 ML IVPB IV ONE (17:54)
[2024-05-29] MEDS: ROCEPHIN 2 GM/100 ML NACL 2 GM/100 ML IVPB IV ONE (18:00)
[2024-05-29 21:06] VITALS: BP 105/64; PULSE 59; RESP 16; O2SAT 99
== END 2024-05-29 21:05 | disposition home or self-care (01) ==
LOC: ED 13:37
DX: N39.0 Urinary tract infection, site not specified (principal); R10.9 Unspecified abdominal pain; E03.9 Hypothyroidism, unspecified; R35.0 Frequency of micturition; R16.2 Hepatomegaly with splenomegaly, not elsewhere classified; R79.89 Other specified abnormal findings of blood chemistry
CPT/HCPCS: 36000; 36415; 74176; 80053; 81001; 81025; 83605; 83690; 85025; 87077; 87086; 87186; 96360; 96365; 96374; 99284; J0696; J1885

== ENCOUNTER 2024-09-09 21:54 | Emergency (ER) | payer SELFPAY ==
[2024-09-09 22:06] VITALS: TEMP 98.3
--- NOTE | 2024-09-09 22:10 | ERPHSYRPT ---
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 Pt states she was at work today, got a nosebleed that she said did not stop for > 30 min, reports she started to have chest discomfort while the nose bleed was occurring, reports she was sent home from work at that time. Pt states she took ibuprofen w/o significant relief. Pt describes the pain as squeezing, reports it is diffuse across her chest and reports she can feel it into her upper back. Pt reports she was researching her sx on the internet which made her chest discomfort worse. Pt denies any sob, n/v/d, abdominal pain. Pt does endorse mild cough that started earlier today. Timing/Duration: today Activities at Onset: activity Quality: other (squeezing) Location: other (generalized) Chest Pain Radiation: back Severity of Pain-Max: moderate Severity of Pain-Current: moderate Modifying Factors: Improves With: nothing Associated Symptoms: cough, No nausea, No vomiting, No palpitations, No abdominal pain, No shortness of breath, No diaphoresis, No chills, No fever Prior Chest Pain/Cardiac Workup: no prior chest pain Aspirin Treatment Today: 81 mg x 1 Allergies/Adverse Reactions: ondansetron [From Zofran] Allergy (Verified 09/09/24 22:06) ondansetron HCl [From Zofran] Allergy (Verified 09/09/24 22:06) Vomiting Home Medications: Levothyroxine Sodium [Synthroid] 175 mcg PO DAILY 10/12/13 [History] Hydrocortisone 10 mg PO BID 12/27/17 [History] Hx Tetanus, Diphtheria Vaccination/Date Given: Yes Hx Influenza Vaccination/Date Given: No Hx Pneumococcal Vaccination/Date Given: No Travel Risk - Emerging Infectious Disease Are you exhibiting symptoms associated with any current EIDs: No Symptoms: Abdominal Pain - Review of Systems Constitutional: No Symptoms Respiratory: Cough, No Dyspnea, No Stridor, No Wheezing Cardiac: Chest Pain, No Edema, No Palpitations, No Syncope Abdominal/Gastrointestinal: No Symptoms Genitourinary Symptoms: No Symptoms - Past Medical History Pertinent Past Medical History: Yes Neurological History: No Pertinent History ENT History: No Pertinent History Cardiac History: No Pertinent History Respiratory History: Asthma Endocrine Medical History: Hypothyroidism Musculoskeletal History: No Pertinent History GI Medical History: No Pertinent History, Other History: No Pertinent History, Other Psycho-Social History: Anxiety Female Reproductive Disorders: Abnormal Uterine Bleeding 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 - Past Surgical History Past Surgical History: Yes Neuro Surgical History: No Pertinent History Cardiac: No Pertinent History Respiratory: No Pertinent History Gastrointestinal: Cholecystectomy Genitourinary: No Pertinent History Musculoskeletal: No Pertinent History Female Surgical History: No Pertinent History Other Surgical History: egd--2014 (elevated bili, pain)-- no diagnosis Significant Family History: no pertinent family hx - Female History Hx Last Menstrual Period: N/A - Social History Smoking Status: Never smoker Exposure to second hand smoke: No Alcohol Use: None Drug Use: none Patient Lives Alone: No - Social Determinants of Health Will the patient participate in the screening: Yes Do you worry about a steady place to live?: No In the past 12 months,have you had to go without utilities?: No Transportation Issues: No Has anyone in your support network made you feel unsafe?: No Have you or anyone in your house had to go without enough: No - Nursing Vital Signs Nursing Vital Signs: Initial Vital Signs Temperature 98.3 F 09/09/24 21:56 Pulse Rate 65 09/09/24 21:56 Respiratory Rate 18 09/09/24 21:56 Blood Pressure 112/80 09/09/24 21:56 O2 Sat by Pulse Oximetry 99 09/09/24 21:56 Pain Scale Pain Intensity 8 - Physical Exam General Appearance: no apparent distress, alert Respiratory Exam: normal breath sounds, lungs clear, airway intact, No chest tenderness, No respiratory distress, No diminished breath sounds, No crackles/rales, No rhonchi, No wheezing, No stridor Cardiovascular Exam: regular rate/rhythm, normal heart sounds, normal peripheral pulses, capillary refill <2 sec, No murmur Gastrointestinal/Abdomen Exam: soft, normal bowel sounds, No tenderness, No distention Neurologic Exam: alert, oriented x 3 SpO2 Interpretation: normal SpO2: 98 O2 Delivery: Room Air - Course EKG Interpreted by Me: RATE (86), Sinus Rhythm, Non-specific ST Changes (diffuse ST depressions, qtcb 469) Ordered Tests: Active Orders 24 hr Category Date Time Status EKG-ER Only STAT Care 09/09/24 22:02 Active CHEST 2 VIEWS (PA AND LAT) Stat Exams 09/09/24 22:02 Taken CBC W DIFF Stat Lab 09/09/24 22:16 Completed CMP Stat Lab 09/09/24 22:16 Completed HCG QUALITATIVE, URINE Stat Lab 09/09/24 22:45 Completed TROPONIN Q4H Lab 09/10/24 02:15 Ordered TROPONIN Q4H Lab 09/10/24 06:15 Ordered TROPONIN Q4H Lab 09/09/24 22:16 Completed Urine Triage Profile Stat Lab 09/09/24 22:45 Completed Medication Summary Discontinued Medications Generic Name Dose Route Start Last Admin Trade Name Freq PRN Reason Stop Dose Admin Aspirin 81 mg 09/09/24 22:10 09/09/24 22:21 Aspirin 81 Mg Tab.Chew PO 09/09/24 22:11 81 mg STAT ONE Administration Aspirin Confirm 09/09/24 22:15 Aspirin 81 Mg Tab.Chew Administered 09/09/24 22:16 Dose 81 mg .ROUTE .STK-MED ONE Calcium Carbonate/Glycine Confirm 09/09/24 23:18 Calcium Carbonate 750 Mg 750 Mg Tab.Chew Administered 09/09/24 23:19 Dose 1,500 mg .ROUTE .STK-MED ONE Calcium Carbonate/Glycine 1,500 mg 09/09/24 23:27 09/09/24 23:27 Calcium Carbonate 750 Mg 750 Mg Tab.Chew PO 09/09/24 23:28 1,500 mg STAT ONE Administration Lorazepam 0.5 mg 09/09/24 22:03 09/09/24 22:26 Lorazepam 0.5 Mg Tablet PO 09/09/24 22:04 Not Given STAT ONE Lorazepam Confirm 09/09/24 22:15 Lorazepam 1 Mg Tablet Administered 09/09/24 22:16 Dose 1 mg .ROUTE .STK-MED ONE Lorazepam 1 mg 09/09/24 22:17 09/09/24 22:25 Lorazepam 1 Mg Tablet PO 09/09/24 22:18 Not Given STAT ONE Lorazepam 0.5 mg 09/09/24 22:20 09/09/24 22:21 Lorazepam 1 Mg Tablet PO 09/09/24 22:21 0.5 mg STAT ONE Administration Lab/Rad Data: Laboratory Result Diagrams 09/09/24 22:16 09/09/24 22:16 Laboratory Results 09/09/24 09/09/24 09/09/24 Range/Units 22:45 22:45 22:16 WBC (3.98-10.04) x10^3/uL RBC (3.93-5.22) x10^6/uL Hgb (11.2-15.7) g/dL Hct (34.1-44.9) % MCV (79.4-94.8) fL MCH (25.6-32.2) pg MCHC (32.2-35.5) g/dL RDW (11.7-14.4) % Plt Count (182-369) x10^3/uL MPV (9.4-12.3) fL Gran % (34.0-71.1) % Immature Gran % (Auto) (0.001-0.429) % Nucleat RBC Rel Count (0.00-0.2) % Eos # (Auto) (0.04-0.36) x10^3/uL Immature Gran # (Auto) (0.001-0.031) x10^3u/L Absolute Lymphs (auto) (1.18-3.74) x10^3/uL Absolute Monos (auto) (0.24-0.86) x10^3/uL Absolute Nucleated RBC (0.00-0.012) x10^3u/L Lymphocytes % (19.3-51.7) % Monocytes % (4.7-12.5) % Eosinophils % (0.7-5.8) % Basophils % (0.1-1.2) % Absolute Granulocytes (1.56-6.13) x10^3/uL Basophils # (0.01-0.08) x10^3/uL Sodium (135-145) mmol/L Potassium (3.5-5.1) mmol/L Chloride (98-107) mmol/L Carbon Dioxide (22-30) mmol/L Anion Gap (5-15) MEQ/L BUN (7-17) mg/dL Creatinine (0.52-1.04) mg/dL Estimated GFR ML/MIN Glucose (74-106) mg/dL Calcium (8.4-10.2) mg/dL Total Bilirubin (0.2-1.3) mg/dL AST (14-36) U/L ALT (0-35) U/L Alkaline Phosphatase (38-126) U/L Troponin I < 0.012 (0.000-0.033) ng/mL Serum Total Protein (6.3-8.2) g/dL Albumin (3.5-5.0) g/dL Urine HCG, Qual NEGATIVE (NEGATIVE) Urine Opiates Level NEGATIVE (NEGATIVE) Ur Methadone NEGATIVE (NEGATIVE) Urine Barbiturates NEGATIVE (NEGATIVE) Ur Phencyclidine (PCP) NEGATIVE (NEGATIVE) Urine Amphetamine NEGATIVE (NEGATIVE) U Benzodiazepine Level NEGATIVE (NEGATIVE) Urine Cocaine NEGATIVE (NEGATIVE) Urine Marijuana (THC) NEGATIVE (NEGATIVE) 09/09/24 09/09/24 Range/Units 22:16 22:16 WBC 8.4 (3.98-10.04) x10^3/uL RBC 4.38 (3.93-5.22) x10^6/uL Hgb 13.8 (11.2-15.7) g/dL Hct 38.1 (34.1-44.9) % MCV 87.0 (79.4-94.8) fL MCH 31.5 (25.6-32.2) pg MCHC 36.2 H (32.2-35.5) g/dL RDW 11.7 (11.7-14.4) % Plt Count 153 L (182-369) x10^3/uL MPV 11.5 (9.4-12.3) fL Gran % 50.6 (34.0-71.1) % Immature Gran % (Auto) 0.4 (0.001-0.429) % Nucleat RBC Rel Count 0.0 (0.00-0.2) % Eos # (Auto) 0.38 H (0.04-0.36) x10^3/uL Immature Gran # (Auto) 0.03 (0.001-0.031) x10^3u/L Absolute Lymphs (auto) 3.09 (1.18-3.74) x10^3/uL Absolute Monos (auto) 0.54 (0.24-0.86) x10^3/uL Absolute Nucleated RBC 0.00 (0.00-0.012) x10^3u/L Lymphocytes % 36.9 (19.3-51.7) % Monocytes % 6.5 (4.7-12.5) % Eosinophils % 4.5 (0.7-5.8) % Basophils % 1.1 (0.1-1.2) % Absolute Granulocytes 4.24 (1.56-6.13) x10^3/uL Basophils # 0.09 H (0.01-0.08) x10^3/uL Sodium 139 (135-145) mmol/L Potassium 3.8 (3.5-5.1) mmol/L Chloride 102 (98-107) mmol/L Carbon Dioxide 27 (22-30) mmol/L Anion Gap 13.7 (5-15) MEQ/L BUN 8 (7-17) mg/dL Creatinine 0.72 (0.52-1.04) mg/dL Estimated GFR 120.4 ML/MIN Glucose 112 H (74-106) mg/dL Calcium 9.8 (8.4-10.2) mg/dL Total Bilirubin 2.50 H (0.2-1.3) mg/dL AST 248 H (14-36) U/L ALT 243 H (0-35) U/L Alkaline Phosphatase 149 H (38-126) U/L Troponin I (0.000-0.033) ng/mL Serum Total Protein 8.3 H (6.3-8.2) g/dL Albumin 4.8 (3.5-5.0) g/dL Urine HCG, Qual (NEGATIVE) Urine Opiates Level (NEGATIVE) Ur Methadone (NEGATIVE) Urine Barbiturates (NEGATIVE) Ur Phencyclidine (PCP) (NEGATIVE) Urine Amphetamine (NEGATIVE) U Benzodiazepine Level (NEGATIVE) Urine Cocaine (NEGATIVE) Urine Marijuana (THC) (NEGATIVE) - Progress Progress: improved Air Movement: good Progress Note: 09/09/24 23:50 sx resolved w/ 1 dose ativan, 1 dose tums trop negative, cxr negative for acute pathology liver enzymes elevated - this is chronic, pt has undergone w/u for transaminitis on multiple occasions, has follow up with GI planned EKG showed mild ST depressions diffusely - no significant difference from ekg obtained at prior visit on 08/16/2023 i recommended repeat troponin - pt and mother both requesting to discharge home w/o repeat trop b/c they have elderly family to take care of at home will discharge home w/ close return precautions and pcp follow up (Rosita) 09/09/24 23:52 plan for discharge home w/ PCP follow up w/in 1wk (Rosita) recommend avoiding spicy/greasy foods, recommend plenty of oral hydration can use ibuprofen for chest discomfort, honey for dry cough continue to follow up on elevated liver enzymes as outpatient return to ED if: chest pain returns and does not resolve w/ pain relievers, develop shortness of breath, develop pain/tingling in left arm/shoulder/jaw Blood Culture(s) Obtained: No Antibiotics given: No Counseled pt/family regarding: lab results, diagnosis, need for follow-up, rad results Medical Desision Making - Diagnostic Testing Diagnostic test were ordered, analyzed, and reviewed by me: Yes Radiological Interpretation: Interpreted by me, Reviewed by me - Risk of complications Minimal Risk: Minimal risk of morbidity - Departure Departure Disposition: Home Clinical Impression: Transaminitis, Chest wall discomfort Condition: Stable Critical Care Time: No Referrals: JUVENTINO YEH NP [Primary Care Provider] - Follow up/PCP as directed Additional Instructions: plan for discharge home w/ PCP follow up w/in 1wk (Rosita) recommend avoiding spicy/greasy foods, recommend plenty of oral hydration can use ibuprofen for chest discomfort, honey for dry cough continue to follow up on elevated liver enzymes as outpatient return to ED if: chest pain returns and does not resolve w/ pain relievers, develop shortness of breath, develop pain/tingling in left arm/shoulder/jaw
[2024-09-09] MEDS ORDERED: Ativan 1 MG ONE (22:15)
[2024-09-09] MEDS ORDERED: BABY ASPIRIN 81 MG CHEW ONE (22:15)
[2024-09-09 22:17] LABS: Absolute Neutrophil Ct (ANC) 4.24 x10^3/uL (1.56-6.13); BASOPHIL % 1.1 % (0.1-1.2); Basophil (Absolute #) 0.09 x10^3/uL (0.01-0.08); Eosinophil % 4.5 % (0.7-5.8); Eosinophil (Absolute #) 0.38 x10^3/uL (0.04-0.36); Hematocrit 38.1 % (34.1-44.9); Hemoglobin 13.8 g/dL (11.2-15.7); IMMATURE GRAN # 0.03 x10^3u/L (0.001-0.031); IMMATURE GRAN % 0.4 % (0.001-0.429); Lymphocyte (Absolute #) 3.09 x10^3/uL (1.18-3.74); Lymphocytes % 36.9 % (19.3-51.7); Mean Corpuscular Hemoglobin 31.5 pg (25.6-32.2); Mean Corpuscular Hgb Concent. 36.2 g/dL (32.2-35.5); Mean Platelet Volume 11.5 fL (9.4-12.3); Monocyte (Absolute #) 0.54 x10^3/uL (0.24-0.86); Monocytes % 6.5 % (4.7-12.5); Neutrophil % 50.6 % (34.0-71.1); Platelet Count 153 x10^3/uL (182-369); Red Blood Count 4.38 x10^6/uL (3.93-5.22); Red Cell Distribution Width 11.7 % (11.7-14.4); White Blood Count 8.4 x10^3/uL (3.98-10.04)
[2024-09-09] MEDS: Ativan 1 MG PO ONE ×2 (22:21→22:25)
[2024-09-09] MEDS: BABY ASPIRIN 81 MG CHEW PO ONE (22:21)
[2024-09-09] MEDS: Ativan 0.5 MG PO ONE (22:26)
[2024-09-09 22:30] LABS: ALBUMIN 4.8 g/dL (3.5-5.0); ANION GAP 13.7 MEQ/L (5-15); BILIRUBIN,TOTAL 2.5 mg/dL (0.2-1.3); Calcium 9.8 mg/dL (8.4-10.2); Creatinine 1 0.72 mg/dL (0.52-1.04); EST GLOMERULAR FILTRATION RATE 120.4 ML/MIN; Potassium 3.8 mmol/L (3.5-5.1); Total Protein 8.3 g/dL (6.3-8.2)
[2024-09-09] MEDS ORDERED: Tums EX 750 MG ONE (23:18)
[2024-09-09 23:22] LABS: HCG URINE TEST NEGATIVE (NEGATIVE)
[2024-09-09] MEDS: Tums EX 750 MG PO ONE (23:27)
[2024-09-09 23:33] VITALS: BP 119/73; PULSE 84; RESP 22
[2024-09-09 23:37] LABS: Amphetamine,Urine NEGATIVE (NEGATIVE); Barbiturate,Urine NEGATIVE (NEGATIVE); Benzodiazepine,Urine NEGATIVE (NEGATIVE); Cocaine,Urine NEGATIVE (NEGATIVE); Methadone,Urine NEGATIVE (NEGATIVE); Opiate,Urine NEGATIVE (NEGATIVE); PCP,Urine NEGATIVE (NEGATIVE); THC,Urine NEGATIVE (NEGATIVE)
[2024-09-09 23:51] VITALS: O2SAT 98
--- NOTE | 2024-09-10 08:53 | XRAY ---
Indication: Chest pain. Comparison: August 16, 2023 PA/lateral chest again demonstrates normal heart, lungs, and bony thorax.
== END 2024-09-10 00:12 | disposition home or self-care (01) ==
LOC: ED 21:54
DX: R74.01 Elevation of levels of liver transaminase levels (principal); R07.89 Other chest pain; Z79.899 Other long term (current) drug therapy
CPT/HCPCS: 36415; 71046; 80053; 80307; 81025; 84484; 85025; 93005; 99284; 99285; A9270-GY